=== PATIENT | female | born 1950 | race Caucasian/White ===

== ENCOUNTER 2017-05-26 05:15 | Emergency (ER) | payer MEDICARE ==
[2017-05-26 05:28] VITALS: BP 133/49
--- NOTE | 2017-05-26 08:05 | RAD ---
HISTORY: Right shoulder pain COMPARISONS: October 26, 2015 VIEWS: 4, Frontal internal rotation, external rotation, outlet, and axillary views of the right shoulder FINDINGS: BONE DENSITY: There is diffuse osteopenia. BONES: There is no displaced fracture. JOINTS: There is mild osteoarthritis of the a.c. and glenohumeral joints ALIGNMENT: There is no dislocation. SOFT TISSUES: There is soft tissue calcification along the greater tuberosity OTHER FINDINGS: None. IMPRESSION: 1. OSTEOPENIA. 2. SOFT TISSUE CALCIFICATION SUGGESTIVE OF A CALCIFIC TENDINOPATHY. 3. NO ACUTE OSSEOUS INJURY. THE DEGREE OF OSTEOPENIA MAY MAKE A NONDISPLACED FRACTURE RADIOGRAPHICALLY OCCULT. IF SYMPTOMS PERSIST, RECOMMEND REPEAT IMAGING.
--- NOTE | 2017-05-26 08:06 | RAD ---
HISTORY: Fall, right rib pain COMPARISONS: July 04, 2016 VIEWS: 6, Frontal view of the chest with frontal and oblique views of the right hemithorax. FINDINGS: There is no displaced rib fracture or pneumothorax. The visualized lungs are clear. There is remote posttraumatic deformity to the left hemithorax and left shoulder. IMPRESSION: NO ACUTE DISPLACED RIB FRACTURE OR PNEUMOTHORAX.
== END 2017-05-26 06:50 | disposition home or self-care (01) ==
LOC: ED 05:15
DX: M25.511 Pain in right shoulder (principal); R07.81 Pleurodynia
CPT/HCPCS: 99282

== ENCOUNTER 2017-06-04 21:58 | Emergency (ER) | payer MEDICARE ==
[2017-06-04 22:13] VITALS: BP 136/69
--- NOTE | 2017-06-04 22:14 | UC ---
Lower Extremity/Ankle HPI - HPI Summary HPI Summary: wound dressing on left leg is saturated--per wound clinic patient needs dressing changed--patient to [facility] for assistance with dressing change - History of Current Complaint Chief Complaint: UCSkin Stated Complaint: WOUND REPACKING Time Seen by Provider: 06/04/17 22:00 Hx Obtained From: Patient ?: No Onset/Duration: Gradual Onset, Worse Since - tonight Severity Initially: Mild Severity Currently: Mild Aggravating Factor(s): Nothing Able to Bear Weight: Yes - Allergies/Home Medications Allergies/Adverse Reactions: Allergies Allergy/AdvReac Type Severity Reaction Status Date / Time Morphine Allergy Mild Unknown Verified 06/04/17 22:07 Reaction Details Clarithromycin [From Biaxin] Allergy Unknown Unknown Verified 06/04/17 22:07 Reaction Details Codeine Allergy Unknown Unknown Verified 06/04/17 22:07 Reaction Details Dust Mite Extract Allergy Unknown Unknown Verified 06/04/17 22:07 Reaction Details Gabapentin [From Neurontin] Allergy Unknown Unknown Verified 06/04/17 22:07 Reaction Details Iodinated Contrast Media Allergy Unknown SEE Verified 06/04/17 22:07 [CONTRAST DYE] COMMENT Lactose Intolerance (GI) Allergy Unknown Unknown Verified 06/04/17 22:07 Reaction Details Meperidine [From Demerol HCl] Allergy Unknown Unknown Verified 06/04/17 22:07 Reaction Details Molds & Smuts Allergy Unknown Unknown Verified 06/04/17 22:07 Reaction Details Moxifloxacin [From Avelox] Allergy Unknown Rash Verified 06/04/17 22:07 Nickel Allergy Unknown Rash And Verified 06/04/17 22:07 Itching Penicillins [PCN] Allergy Unknown Rash Verified 06/04/17 22:07 Pollen Extract Allergy Unknown Unknown Verified 06/04/17 22:07 Reaction Details Propoxyphene [From Darvon] Allergy Unknown Unknown Verified 06/04/17 22:07 Reaction Details Soy Allergy Allergy Unknown Unknown Verified 06/04/17 22:07 Reaction Details Terconazole [From Terazol] Allergy Unknown Unknown Verified 06/04/17 22:07 Reaction Details Tetanus Toxoid Allergy Unknown See Verified 06/04/17 22:07 Comment Gluten Meal AdvReac Unknown GI Upset Verified 06/04/17 22:07 k y jelly Allergy Unknown Unknown Uncoded 06/04/17 22:07 Reaction Details narcotics Allergy Unknown Nausea And Uncoded 06/04/17 22:07 Vomiting PMH/Surg Hx/FS Hx/Imm Hx Endocrine History: Diabetes, Hypothyroidism GI/ History: Gastroesophageal Reflux Other History Of: Negative For: Anticoagulant Therapy - baby aspirin - Surgical History Surgical History: Yes Surgery Procedure, Year, and Place: 2005- RADICAL NECK SURG - FOR 2 TUMORS: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 ARTHROSCOPIC - 12/1981; WISDOM TEETH EXTRACTION; - Family History Known Family History: Positive: Cardiac Disease - Social History Occupation: Disabled Lives: With Family Alcohol Use: None Substance Use Type: None Smoking Status (MU): Never Smoked Tobacco - Immunization History Most Recent Influenza Vaccination: 2015 Review of Systems Constitutional: Negative Skin: Other - serrous drainaing bulla on left lower extremity--- needs dressing change Eyes: Negative ENT: Negative Respiratory: Negative Cardiovascular: Negative Gastrointestinal: Negative Genitourinary: Negative Motor: Negative Neurovascular: Negative Musculoskeletal: Negative Neurological: Negative Psychological: Negative Is Patient Immunocompromised?: No All Other Systems Reviewed And Are Negative: Yes Physical Exam Triage Information Reviewed: Yes Appearance: Well-Appearing, No Pain Distress, Well-Nourished Vital Signs: Initial Vital Signs Temp 100.6 F 06/04/17 22:03 Pulse 85 06/04/17 22:03 Resp 16 06/04/17 22:03 BP 136/69 06/04/17 22:03 Pulse Ox 98 06/04/17 22:03 Vital Signs Reviewed: Yes Eye Exam: Normal Eyes: Positive: Conjunctiva Clear ENT Exam: Normal ENT: Positive: Normal ENT inspection, Hearing grossly normal. Negative: Nasal congestion, Nasal drainage, Trismus, Muffled/hoarse voice Dental Exam: Normal Neck exam: Other - surgical changes-healed Neck: Positive: 1 Respiratory Exam: Normal Respiratory: Positive: Chest non-tender, No respiratory distress, No accessory muscle use, Respiratory distress Cardiovascular Exam: Normal Cardiovascular: Positive: RRR, No Murmur, Pulses Normal Musculoskeletal Exam: Normal Musculoskeletal: Positive: Strength Intact, ROM Intact, No Edema Neurological Exam: Normal Neurological: Positive: Alert, Muscle Tone Normal Psychological Exam: Normal Skin Exam: Other Skin: Positive: Other - serrous draining wound LLE with Peripheal edema (chronic ) Lower Extremity Course/Dx - Course Course Of Treatment: Dressing changed, support hose applied, patient tolerated well - Differential Dx/Diagnosis Differential Diagnosis/HQI/PQRI: Burn Localized, Bursitis, Cellulitis, Osteomyelitis Provider Diagnoses: Dressing change chronic wound left lower extremity Discharge - Discharge Plan Condition: Stable Disposition: HOME Patient Education Materials: Wound Healing and Your Diet (ED) Referrals: Pablo Thomas MD [Primary Care Provider] - Additional Instructions: Follow at the wound clinic June 07 as planned--
== END 2017-06-04 22:25 | disposition home or self-care (01) ==
LOC: UCEAST 21:58
DX: S81.802D Unspecified open wound, left lower leg, subsequent encounter (principal); X58.XXXD Exposure to other specified factors, subsequent encounter; Z48.00 Encounter for change or removal of nonsurgical wound dressing; E11.9 Type 2 diabetes mellitus without complications; E03.9 Hypothyroidism, unspecified; K21.9 Gastro-esophageal reflux disease without esophagitis; Z79.82 Long term (current) use of aspirin; Z88.5 Allergy status to narcotic agent; Z88.0 Allergy status to penicillin; Z88.7 Allergy status to serum and vaccine; Z88.1 Allergy status to other antibiotic agents; Z91.041 Radiographic dye allergy status
CPT/HCPCS: 99212; G0463

== ENCOUNTER 2017-08-16 15:00 | Emergency (ER) | payer MEDICARE ==
[2017-08-16 16:13] LABS: Hematocrit 29 % (35-47); Mean Corpuscular HGB Conc 32 g/dl (31-36); Mean Corpuscular Hemoglobin 27 pg (27-31); Mean Corpuscular Volume 84 fL (80-97); Mean Platelet Volume 9 um3 (7.4-10.4); Red Blood Count 3.39 10^6/ul (4.0-5.4); Red Cell Distribution Width 19 % (10.5-15); White Blood Count 7.4 10^3/ul (3.5-10.8)
[2017-08-16 16:14] LABS: Comments Flag Yes
[2017-08-16 16:17] LABS: ALT 8 U/L (7-52); AST 15 U/L (13-39); Albumin 3.6 g/dL (3.2-5.2); Alkaline Phosphatase 94 U/L (34-104); Amylase 11 U/L (29-103); Anion Gap 5 mmol/L (2-11); BUN/Creatinine Ratio 35.2 (8-20); Blood Urea Nitrogen 25 mg/dL (6-24); C Reactive Protein 5.01 mg/L (< 5.00); CO2 Carbon Dioxide 30 mmol/L (22-32); Calcium 9.1 mg/dL (8.6-10.3); Chloride 100 mmol/L (101-111); EGFR African American 105.9 (>60); EGFR Non-African American 82.4 (>60); Globulin 3.2 g/dL (2-4); Glucose 102 mg/dL (70-100); Lipase < 10 U/L (11.0-82.0); Potassium 3.7 mmol/L (3.5-5.0); Sodium 135 mmol/L (133-145); Total Protein 6.8 g/dL (6.4-8.9)
--- NOTE | 2017-08-16 16:34 | RAD ---
INDICATION: Abdominal bloating. COMPARISON: There are no prior studies available for comparison. TECHNIQUE: Supine and upright views of the abdomen were obtained. FINDINGS: The small bowel and colon appear nondistended. No free intraperitoneal air is seen. There is a moderate to large amount retained stool. No abnormal calcifications are seen. IMPRESSION: NO EVIDENCE FOR OBSTRUCTION. MODERATE TO LARGE AMOUNT RETAINED STOOL.
[2017-08-16] MEDS ORDERED: Magnesium CITRATE* 300 ML BTL PO ONE (17:18)
[2017-08-16] MEDS ORDERED: Polyethylene Glycol 3350 BTL* 238 GM BTL PO ONE (17:18)
[2017-08-16] MEDS ORDERED: traMADol TAB* 50 MG PO ONE (17:35)
[2017-08-16] MEDS ORDERED: Acetaminophen TAB* 325 MG PO ONE (17:40)
[2017-08-16] MEDS ORDERED: Polyethylene Glycol 3350* 17 GM PACKET ONE (18:14)
[2017-08-16 18:35] VITALS: BP 119/63
--- NOTE | 2017-08-16 19:00 | ED ---
Griffin Cho Angela, scribed for Dharmesh Bravo MD on 08/16/17 at 1520 . Abdominal Pain/Female - HPI Summary HPI Summary: This pt is a 66 y/o female presenting to [facility] from the wound care c/o abd bloating. Pt reports at the wound clinic, she had a fever of 100 F. Pt states her abd is bloated probably due to gas. Pt notes she is burping but is not passing flatus. Pt denies any diarrhea, nausea, vomiting. She states her last BM was this morning and it was "as normal as it can be with IBS." PMHx includes IBS, diabetes, thyroid disease. - History of Current Complaint Chief Complaint: EDNauseaVomitDiarrh Stated Complaint: NAUSEA,HEADACHE Time Seen by Provider: 08/16/17 15:12 Hx Obtained From: Patient Onset/Duration: Lasting Hours, Still Present Timing: Hours Pain Intensity: 8 Pain Scale Used: 0-10 Numeric Location: Diffuse Radiates: No Character: Other: - bloating Associated Signs and Symptoms: Positive: Cough Allergies/Adverse Reactions: Allergies Allergy/AdvReac Type Severity Reaction Status Date / Time Morphine Allergy Mild Unknown Verified 06/04/17 22:07 Reaction Details Clarithromycin [From Biaxin] Allergy Unknown Unknown Verified 06/04/17 22:07 Reaction Details Codeine Allergy Unknown Unknown Verified 06/04/17 22:07 Reaction Details Dust Mite Extract Allergy Unknown Unknown Verified 06/04/17 22:07 Reaction Details Gabapentin [From Neurontin] Allergy Unknown Unknown Verified 06/04/17 22:07 Reaction Details Iodinated Contrast Media Allergy Unknown SEE Verified 06/04/17 22:07 [CONTRAST DYE] COMMENT Lactose Intolerance (GI) Allergy Unknown Unknown Verified 06/04/17 22:07 Reaction Details Meperidine [From Demerol HCl] Allergy Unknown Unknown Verified 06/04/17 22:07 Reaction Details Molds & Smuts Allergy Unknown Unknown Verified 06/04/17 22:07 Reaction Details Moxifloxacin [From Avelox] Allergy Unknown Rash Verified 06/04/17 22:07 Nickel Allergy Unknown Rash And Verified 06/04/17 22:07 Itching Penicillins [PCN] Allergy Unknown Rash Verified 06/04/17 22:07 Pollen Extract Allergy Unknown Unknown Verified 06/04/17 22:07 Reaction Details Propoxyphene [From Darvon] Allergy Unknown Unknown Verified 06/04/17 22:07 Reaction Details Soy Allergy Allergy Unknown Unknown Verified 06/04/17 22:07 Reaction Details Terconazole [From Terazol] Allergy Unknown Unknown Verified 06/04/17 22:07 Reaction Details Tetanus Toxoid Allergy Unknown See Verified 06/04/17 22:07 Comment Gluten Meal AdvReac Unknown GI Upset Verified 06/04/17 22:07 k y jelly Allergy Unknown Unknown Uncoded 06/04/17 22:07 Reaction Details narcotics Allergy Unknown Nausea And Uncoded 06/04/17 22:07 Vomiting PMH/Surg Hx/FS Hx/Imm Hx Endocrine/Hematology History: Reports: Hx Blood Disorders - Thalasemia minor, Hx Diabetes, Hx Thyroid Disease Denies: Hx Anticoagulant Therapy - baby aspirin Cardiovascular History: Reports: Hx Angina, Other Cardiovascular Problems/ Disorders - TACHYCARDIA/IDDM I Denies: Hx Coronary Artery Disease, Hx Hypercholesterolemia, Hx Hypertension , Hx Myocardial Infarction, Hx Pacemaker/ICD, Hx Valvular Heart Disease Respiratory History: Reports: Hx Asthma, Hx Seasonal Allergies Denies: Hx Chronic Obstructive Pulmonary Disease (COPD) GI History: Reports: Hx Irritable Bowel History: Denies: Hx Renal Disease Musculoskeletal History: Reports: Other Musculoskeletal History - ARTHRITIS Sensory History: Denies: Hx Hearing Aid Neurological History: Reports: Other Neuro Impairments/Disorders - TINNITUS Denies: Hx Dementia, Hx Seizures Psychiatric History: Denies: Hx Panic Disorder - Cancer History Cancer Type, 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 ARTHROSCOPIC - 12/1981; WISDOM TEETH EXTRACTION; - Immunization History Date of Tetanus Vaccine: allergic Date of Influenza Vaccine: utd Infectious Disease History: No Infectious Disease History: Reports: Hx Shingles Denies: Hx Hepatitis, Hx Human Immunodeficiency Virus (HIV), Traveled Outside the [place] in Last 30 Days - Family History Known Family History: Positive: Cardiac Disease - Social History Alcohol Use: None Hx Substance Use: No Substance Use Type: Reports: None Hx Tobacco Use: No Smoking Status (MU): Never Smoked Tobacco Have You Smoked in the Last Year: No Review of Systems Positive: Fever Eyes: Negative ENT: Negative Cardiovascular: Negative Gastrointestinal: Other - abd bloating, burping Negative: Vomiting, Diarrhea, Nausea Neurological: Negative All Other Systems Reviewed And Are Negative: Yes Physical Exam - Summary Physical Exam Summary: VITAL SIGNS: Reviewed. GENERAL: Patient is an elderly female. Patient is not in any acute respiratory distress. It is difficult to understand pt probably due to surgery on her neck that has affected her vocal cords. HEAD AND FACE: Normocephalic and atraumatic. EYES: PERRLA, EOMI x 2, No injected conjunctiva. EARS: Hearing grossly intact. Ear canals and tympanic membranes are WNL. MOUTH: Oropharynx within normal limits. NECK: Supple, trachea is midline, no adenopathy, no JVD. CHEST: Symmetric, no tenderness at palpation LUNGS: Clear to auscultation bilaterally. No wheezing or crackles. CVS: RRR, S1 and S2 present, no murmurs or gallops appreciated. ABDOMEN: Soft, non-tender. No signs of distention. Positive bowel sounds. No rebound no guarding, and no masses palpated. No abdominal bruit or pulsations. EXTREMITIES: FROM in all major joints, no edema, no cyanosis or clubbing. NEURO: Alert and oriented x 3. No acute neurological deficits. Speech is normal. SKIN: Dry and warm Triage Information Reviewed: Yes Vital Signs On Initial Exam: Initial Vitals Temp Pulse Resp BP Pulse Ox 98.3 F 75 20 137/48 100 08/16/17 15:03 08/16/17 15:03 08/16/17 15:03 08/16/17 15:03 08/16/17 15:03 Vital Signs Reviewed: Yes Diagnostics - Vital Signs Vital Signs Temp Pulse Resp BP Pulse Ox 08/16/17 15:03 98.3 F 75 20 137/48 100 - Laboratory Result Diagrams: 08/16/17 15:50 08/16/17 15:50 Lab Statement: Any lab studies that have been ordered have been reviewed, and results considered in the medical decision making process. - Radiology Abdomen XR Xray Interpretation: Positive (See Comments) - IMPRESSION: No evidence for obstruction. Moderate to large amount retained stool. ED physician has reviewed this radiology report and agrees. Radiology Interpretation Completed By: Radiologist Re-Evaluation - Re-Evaluation First Eval Re-Evaluation Time: 17:35 Comment: I discussed the XR results with the pt. Abdominal Pain Fem Course/Dx - Course Course Of Treatment: This pt is a 66 y/o female presenting to [facility] from the wound care c/o abd bloating. Pt reports at the wound clinic, she had a fever of 100 F. Pt states her abd is bloated probably due to gas. Pt notes she is burping but is not passing flatus. Pt denies any diarrhea, nausea, vomiting. She states her last BM was this morning and it was "as normal as it can be with IBS.". PMHx includes IBS, diabetes, thyroid disease. Test results shows slight chronic anemia but no other significant abnormalities. XR of the abdomen shows no evidence for obstruction. Moderate to large amount retained stool. Since the pt seems to have constipation, she was given miralax, lactulose, magnesium citrate. The pt continues to be asymptomatic with no abdominal pain, rather she has bloating. Therefore, the pt will be discharged home with follow up from her PCP. Pt is hemodynamically stable, alert and oriented x3. - Diagnoses Provider Diagnoses: Bloating, Constipation Discharge - Discharge Plan Condition: Stable Disposition: HOME Patient Education Materials: Constipation (ED), Gas and Bloating (ED) Referrals: Pablo Thomas MD [Primary Care Provider] - Additional Instructions: Please follow up with your primary care provider. RETURN TO THE ED FOR ANY WORSENING SYMPTOMS. The documentation as recorded by the Griffin calloway Angela accurately reflects the service I personally performed and the decisions made by me, Dharmesh Bravo MD.
== END 2017-08-16 18:34 | disposition home or self-care (01) ==
LOC: ED 15:00
DX: R14.0 Abdominal distension (gaseous) (principal); K59.00 Constipation, unspecified; R11.0 Nausea; R05 Cough; R50.9 Fever, unspecified
CPT/HCPCS: 36415; 74020; 80053; 82150; 83690; 85025; 86140; 99283; A9270-GY

== ENCOUNTER 2017-09-15 03:18 | Emergency (ER) | payer MEDICARE ==
[2017-09-15] MEDS ORDERED: traMADol TAB* 50 MG PO ONE (04:15)
[2017-09-15 04:51] VITALS: BP 113/62
--- NOTE | 2017-09-15 05:24 | ED ---
Barron Cho Stephanie, scribed for Santino Knight on 09/15/17 at 0335 . Head Injury - HPI Summary HPI Summary: Pt is a 66 y/o F with c/o head injury post fall. Pt denies LOC. - History Of Current Complaint Chief Complaint: EDHeadInjury Stated Complaint: FALL, HEAD INJURY Time Seen by Provider: 09/15/17 03:24 Hx Obtained From: Patient, Family/Eviction Specialist Mechanism Of Injury: Fall From A Standing Position Onset/Duration: Started Hours Ago Onset of Pain: Post Accident Severity Initially: Moderate Pain Intensity: 6 Pain Scale Used: 0-10 Numeric Location of Head Injury: Occipital - Allergies/Home Medications Allergies/Adverse Reactions: Allergies Allergy/AdvReac Type Severity Reaction Status Date / Time Morphine Allergy Mild Unknown Verified 09/15/17 03:23 Reaction Details Clarithromycin [From Biaxin] Allergy Unknown Unknown Verified 09/15/17 03:23 Reaction Details Codeine Allergy Unknown Unknown Verified 09/15/17 03:23 Reaction Details Dust Mite Extract Allergy Unknown Unknown Verified 09/15/17 03:23 Reaction Details Gabapentin [From Neurontin] Allergy Unknown Unknown Verified 09/15/17 03:23 Reaction Details Iodinated Contrast Media Allergy Unknown SEE Verified 09/15/17 03:23 [CONTRAST DYE] COMMENT Lactose Intolerance (GI) Allergy Unknown Unknown Verified 09/15/17 03:23 Reaction Details Meperidine [From Demerol HCl] Allergy Unknown Unknown Verified 09/15/17 03:23 Reaction Details Molds & Smuts Allergy Unknown Unknown Verified 09/15/17 03:23 Reaction Details Moxifloxacin [From Avelox] Allergy Unknown Rash Verified 09/15/17 03:23 Nickel Allergy Unknown Rash And Verified 09/15/17 03:23 Itching Penicillins [PCN] Allergy Unknown Rash Verified 09/15/17 03:23 Pollen Extract Allergy Unknown Unknown Verified 09/15/17 03:23 Reaction Details Propoxyphene [From Darvon] Allergy Unknown Unknown Verified 09/15/17 03:23 Reaction Details Soy Allergy Allergy Unknown Unknown Verified 09/15/17 03:23 Reaction Details Terconazole [From Terazol] Allergy Unknown Unknown Verified 09/15/17 03:23 Reaction Details Tetanus Toxoid Allergy Unknown See Verified 09/15/17 03:23 Comment Gluten Meal AdvReac Unknown GI Upset Verified 09/15/17 03:23 k y jelly Allergy Unknown Unknown Uncoded 09/15/17 03:23 Reaction Details narcotics Allergy Unknown Nausea And Uncoded 09/15/17 03:23 Vomiting PMH/Surg Hx/FS Hx/Imm Hx Endocrine/Hematology History: Reports: Hx Blood Disorders - Thalasemia minor, Hx Diabetes, Hx Thyroid Disease Denies: Hx Anticoagulant Therapy - baby aspirin Cardiovascular History: Reports: Hx Angina, Other Cardiovascular Problems/ Disorders - TACHYCARDIA/IDDM I Denies: Hx Coronary Artery Disease, Hx Hypercholesterolemia, Hx Hypertension , Hx Myocardial Infarction, Hx Pacemaker/ICD, Hx Valvular Heart Disease Respiratory History: Reports: Hx Asthma, Hx Seasonal Allergies Denies: Hx Chronic Obstructive Pulmonary Disease (COPD) GI History: Reports: Hx Irritable Bowel History: Denies: Hx Renal Disease Musculoskeletal History: Reports: Other Musculoskeletal History - ARTHRITIS Sensory History: Denies: Hx Hearing Aid Neurological History: Reports: Other Neuro Impairments/Disorders - TINNITUS Denies: Hx Dementia, Hx Seizures Psychiatric History: Denies: Hx Panic Disorder - Cancer History Cancer Type, Location and Year: squamous cell Hx Chemotherapy: Yes - MOUTH/NECK Hx Radiation Therapy: Yes - MOUTH/NECK - Surgical History Surgery Procedure, Year, and Place: 2006- RADICAL NECK SURG - FOR 2 TUMORS: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 ARTHROSCOPIC - 12/1981; WISDOM TEETH EXTRACTION; - Immunization History Date of Tetanus Vaccine: unk Date of Influenza Vaccine: unk Infectious Disease History: No Infectious Disease History: Reports: Hx Shingles Denies: Hx Hepatitis, Hx Human Immunodeficiency Virus (HIV), Traveled Outside the [place] in Last 30 Days - Family History Known Family History: Positive: Cardiac Disease - Social History Alcohol Use: None Hx Substance Use: No Substance Use Type: Reports: None Hx Tobacco Use: No Smoking Status (MU): Never Smoked Tobacco Have You Smoked in the Last Year: No Review of Systems Negative: Fever Neurological: Other - Negative: LOC All Other Systems Reviewed And Are Negative: Yes Physical Exam - Summary Physical Exam Summary: Appearance: Well appearing, no pain distress Skin: warm, dry, reflects adequate perfusion Head/face: 3 cm laceration over occipital lobe Eyes: EOMI, IFRAH ENT: normal Neck: supple, non-tender Respiratory: CTA, breath sounds present Cardiovascular: RRR, pulses symmetrical Abdomen: non-tender, soft Bowel: present Musculoskeletal: Tenderness over left shoulder, range of motion limited over left shoulder. Dressing over legs bilaterally. Neuro: normal, sensory motor intact, A&Ox3 Triage Information Reviewed: Yes Vital Signs On Initial Exam: Initial Vitals Temp Pulse Resp BP Pulse Ox 98.1 F 80 18 123/71 98 09/15/17 03:21 09/15/17 03:21 09/15/17 03:21 09/15/17 03:21 09/15/17 03:21 Vital Signs Reviewed: Yes - [place] Coma Scale Coma Scale Total: 15 Procedures - Laceration/Wound Repair 1 Location: head Description: Linear Length, Depth and Shape: 3 cm Laceration/Wound Explored: clean Closure: Sydni #__ - 6 Diagnostics - Vital Signs Vital Signs Temp Pulse Resp BP Pulse Ox 09/15/17 03:21 98.1 F 80 18 123/71 98 - Laboratory Lab Statement: Any lab studies that have been ordered have been reviewed, and results considered in the medical decision making process. - Radiology XRAY SHOULDER Xray Interpretation: No Acute Changes Radiology Interpretation Completed By: ED Physician - Old fracture. No new fracture. - CT CT Brain CT Interpretation: No Acute Changes CT Interpretation Completed By: ED Physician - Negative Head Injury Course/Dx Course Of Treatment: Pt is a 66 y/o F with c/o head injury post fall. ED physician provided laceration repair with 6 stitches. Pt will be discharged and is advised to follow up with PCP to check laceration repair in 3 days and orthopedic physician if pain persits . Pt is diagnosed with scalp laceration, head injury, and L shoulder pain. - Diagnoses Differential Diagnosis/HQI/PQRI: Cerebral Contusion, Contusion, Laceration, Skull Fracture Provider Diagnoses: Scalp laceration, Head injury, Left shoulder pain Discharge - Discharge Plan Condition: Fair Disposition: HOME Patient Education Materials: Head Injury (ED), Care For Your Absorbable Stitches (ED), Shoulder Pain (ED) Referrals: Pablo Thomas MD [Primary Care Provider] - The documentation as recorded by the Barron calloway Stephanie accurately reflects the service I personally performed and the decisions made by Eugene patterson Emmanuel.
--- NOTE | 2017-09-15 07:54 | RAD ---
INDICATION: Intracranial injury. Scalp laceration COMPARISON: MRI brain January 08, 2013 TECHNIQUE: Noncontrast axial source images were acquired from the skull base to the vertex. FINDINGS: Ventricles/sulci: There is mild age-related cortical atrophy with compensatory dilatation of the CSF spaces. Brain parenchyma: There is periventricular and subcortical white matter change compatible with chronic ischemia to include a remote infarct of the right basal ganglia. Intracranial hemorrhage:None. Extra-axial spaces: There are no abnormal extra axial fluid collections or evidence of extra-axial mass. Calvarium: There is no calvarial fracture or other calvarial abnormality. Scalp: There is no evidence of scalp or extracalvarial soft tissue abnormality. Paranasal sinuses/mastoid: The paranasal sinuses and mastoid air cells are clear. Other: None. IMPRESSION: Chronic microvascular ischemic changes. No acute findings
--- NOTE | 2017-09-15 07:56 | RAD ---
INDICATION: Left shoulder pain. Fall. Injury to left shoulder many years ago. COMPARISON: Left shoulder April 18, 2014 TECHNIQUE: Routine frontal, Y and axial views were obtained. FINDINGS: There is osteopenia with a remote fracture of the surgical neck and head of the humerus with resultant deformity. There is AC joint osteoarthritis. There are multiple left-sided rib fractures. There is no acute change. IMPRESSION: PRIOR TRAUMA WITH OLD PROXIMAL HUMERAL AND LEFT RIB FRACTURES. NO ACUTE FINDINGS
== END 2017-09-15 04:49 | disposition home or self-care (01) ==
LOC: ED 03:18
DX: S01.01XA Laceration without foreign body of scalp, initial encounter (principal); W19.XXXA Unspecified fall, initial encounter; Y92.9 Unspecified place or not applicable; Z88.1 Allergy status to other antibiotic agents; Z91.041 Radiographic dye allergy status; Z88.5 Allergy status to narcotic agent; Z88.7 Allergy status to serum and vaccine; Z88.8 Allergy status to other drugs, medicaments and biological substances; Z91.018 Allergy to other foods; Z91.09 Other allergy status, other than to drugs and biological substances; E11.9 Type 2 diabetes mellitus without complications; M19.90 Unspecified osteoarthritis, unspecified site; M25.512 Pain in left shoulder
CPT/HCPCS: 12002; 70450; 99282; A9270-GY

== ENCOUNTER 2017-09-24 08:51 | Emergency (ER) | payer MEDICARE ==
[2017-09-24] MEDS ORDERED: NS 0.9% 1000 ML* 1,000 ML IV ONE (09:08)
--- NOTE | 2017-09-24 09:35 | RAD ---
INDICATION: Hypoglycemia, diabetes mellitus. COMPARISON: Comparison is made with prior chest x-ray study from July 04, 2016. TECHNIQUE: A portable view of the chest was obtained. FINDINGS: Cardiac and mediastinal contours appear to be within normal limits. The lungs are clear. No pleural effusion is seen. There are several old mid left posterior healed rib fractures. IMPRESSION: NO EVIDENCE FOR ACUTE DISEASE.
[2017-09-24 09:46] LABS: ABS Basophils 0 10^3/ul (0-0.2); ABS Eosinophils 0 10^3/ul (0-0.6); ABS Lymphocytes 0.4 10^3/ul (1.0-4.8); ABS Monocytes 0.4 10^3/ul (0-0.8); ABS Neutrophils 7.2 10^3/ul (1.5-7.7); ABS Nucleated RBC 0 10^3/ul; Eosinophil % 0.2 % (0-6); Hematocrit 31 % (35-47); Hemoglobin 9.8 g/dl (12.0-16.0); Lymphocyte % 4.6 % (25-47); Mean Corpuscular HGB Conc 32 g/dl (31-36); Mean Corpuscular Hemoglobin 26 pg (27-31); Mean Corpuscular Volume 82 fL (80-97); Mean Platelet Volume 8 um3 (7.4-10.4); Nucleated Red Blood Cells % 0; Platelet Count 261 10^3/ul (150-450); Red Blood Count 3.82 10^6/ul (4.0-5.4); Red Cell Distribution Width 18 % (10.5-15)
[2017-09-24 09:55] LABS: INR 0.9 (0.77-1.02)
[2017-09-24 10:02] LABS: EGFR Non-African American 77.3 (>60)
[2017-09-24 10:04] LABS: Urine Appearance Clear; Urine Blood Negative (Negative); Urine Color Yellow; Urine Ketones Negative (Negative); Urine Protein 1+(30 mg/dL) (Negative); Urine Urobilinogen Negative (Negative)
--- NOTE | 2017-09-24 10:52 | ED ---
Max Cho Abhishek, scribed for Adali Coy MD on 09/24/17 at 1012 . HPI Diabetic - HPI Summary HPI Summary: This patient is a 66 year old F BIBA accompanied by male with a chief complaint of low blood sugar since today morning at 0800 (09/24/17). Patient has slurred speech but this is baseline speech for her per and pt. PMHx includes DM type 1 since July 1999, not on the pump. Patient was previously in the ED on the 09/15/17 s/p fall and received christie to the back of her head and she also injured her shoulder on that visit to the ED. Shoulder pain is present and she complains of pain. Shoulder and other areas of injury were X-rayed, Ct scanned one week ago (09/15/17). The last intake of insulin was 0600 (lantis 24 at 0600 ) and other previous intake of insulin was 0030. The patient rates the pain 0/ 10 in severity. EMS reports state that sugar level was in the 20s and that patient was given 200 cc 10% dextrose to raise glucose to 200s. Symptoms aggravated by nothing. Symptoms alleviated by nothing. Patient reports chills, tremors, and dry mouth. Patient denies chest pain. Pt with hx Sjogren's. - History Of Current Complaint Chief Complaint: EDDiabeticProb Time Seen by Provider: 09/24/17 09:08 Hx Obtained From: Patient, Family/Nurse Ortho Onset/Duration: Sudden Onset - 0800, Lasting Hours - Onset 0800 09/24/17, Still Present Timing: Constant Severity Initially: Severe Severity Currently: Mild Character: Confused Aggravating: Nothing Alleviating: Nothing Associated Signs & Symptoms: Chills Related History: DM I - Allergies/Home Medications Allergies/Adverse Reactions: Allergies Allergy/AdvReac Type Severity Reaction Status Date / Time Morphine Allergy Mild Unknown Verified 09/15/17 03:23 Reaction Details Clarithromycin [From Biaxin] Allergy Unknown Unknown Verified 09/15/17 03:23 Reaction Details Codeine Allergy Unknown Unknown Verified 09/15/17 03:23 Reaction Details Dust Mite Extract Allergy Unknown Unknown Verified 09/15/17 03:23 Reaction Details Gabapentin [From Neurontin] Allergy Unknown Unknown Verified 09/15/17 03:23 Reaction Details Iodinated Contrast Media Allergy Unknown SEE Verified 09/15/17 03:23 [CONTRAST DYE] COMMENT Lactose Intolerance (GI) Allergy Unknown Unknown Verified 09/15/17 03:23 Reaction Details Meperidine [From Demerol HCl] Allergy Unknown Unknown Verified 09/15/17 03:23 Reaction Details Molds & Smuts Allergy Unknown Unknown Verified 09/15/17 03:23 Reaction Details Moxifloxacin [From Avelox] Allergy Unknown Rash Verified 09/15/17 03:23 Nickel Allergy Unknown Rash And Verified 09/15/17 03:23 Itching Penicillins [PCN] Allergy Unknown Rash Verified 09/15/17 03:23 Pollen Extract Allergy Unknown Unknown Verified 09/15/17 03:23 Reaction Details Propoxyphene [From Darvon] Allergy Unknown Unknown Verified 09/15/17 03:23 Reaction Details Soy Allergy Allergy Unknown Unknown Verified 09/15/17 03:23 Reaction Details Terconazole [From Terazol] Allergy Unknown Unknown Verified 09/15/17 03:23 Reaction Details Tetanus Toxoid Allergy Unknown See Verified 09/15/17 03:23 Comment Gluten Meal AdvReac Unknown GI Upset Verified 09/15/17 03:23 k y jelly Allergy Unknown Unknown Uncoded 09/15/17 03:23 Reaction Details narcotics Allergy Unknown Nausea And Uncoded 09/15/17 03:23 Vomiting PMH/Surg Hx/FS Hx/Imm Hx Previously Healthy: No Endocrine/Hematology History: Reports: Hx Blood Disorders - Thalasemia minor, Hx Diabetes, Hx Thyroid Disease, Other Endocrine/Hematological Disorders - Sjogren's Denies: Hx Anticoagulant Therapy - baby aspirin Cardiovascular History: Reports: Hx Angina, Other Cardiovascular Problems/ Disorders - TACHYCARDIA/IDDM I Denies: Hx Coronary Artery Disease, Hx Hypercholesterolemia, Hx Hypertension , Hx Myocardial Infarction, Hx Pacemaker/ICD, Hx Valvular Heart Disease Respiratory History: Reports: Hx Asthma, Hx Seasonal Allergies Denies: Hx Chronic Obstructive Pulmonary Disease (COPD) GI History: Reports: Hx Irritable Bowel History: Denies: Hx Renal Disease Musculoskeletal History: Reports: Other Musculoskeletal History - ARTHRITIS Sensory History: Denies: Hx Hearing Aid Neurological History: Reports: Other Neuro Impairments/Disorders - TINNITUS Denies: Hx Dementia, Hx Seizures Psychiatric History: Denies: Hx Panic Disorder - Cancer History Cancer Type, Location and Year: squamous cell Hx Chemotherapy: Yes - MOUTH/NECK Hx Radiation Therapy: Yes - MOUTH/NECK - Surgical History Surgery Procedure, Year, and Place: 2006- RADICAL NECK SURG - FOR 2 TUMORS: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 ARTHROSCOPIC - 12/1981; WISDOM TEETH EXTRACTION; - Immunization History Date of Tetanus Vaccine: unk Date of Influenza Vaccine: unk Infectious Disease History: No Infectious Disease History: Reports: Hx Shingles Denies: Hx Hepatitis, Hx Human Immunodeficiency Virus (HIV), Traveled Outside the [place] in Last 30 Days - Family History Known Family History: Positive: Cardiac Disease, Diabetes - Diabetes Type 2 ( half sister) - Social History Lives: With Family Alcohol Use: None Hx Substance Use: No Substance Use Type: Reports: None Hx Tobacco Use: No Smoking Status (MU): Never Smoked Tobacco Have You Smoked in the Last Year: No Review of Systems Constitutional: Other - "low blood sugar" Positive: Chills, Other - dry mouth Eyes: Negative ENT: Negative Negative: Chest Pain Respiratory: Negative Gastrointestinal: Negative Genitourinary: Negative Positive: Other - Tremors Skin: Negative Neurological: Negative Psychological: Normal All Other Systems Reviewed And Are Negative: Yes Physical Exam - Summary Physical Exam Summary: Appearance: Ill-appearing, mild pain distress, Well-nourished, slurred speech, but her usual speech pattern per pt and Skin: Warm, color reflects adequate perfusion Head: Normal Head/Face inspection; dry oral mucosa Eyes: Conjunctiva clear, PERRL EOMI ENT: Normal Neck: Supple, No JVD, no nodes Respiratory: Lungs clear, Normal breath sounds, no respiratory distress Cardio: RRR, No murmur, pulses normal, brisk capillary refill Abdomen: soft, nontender, no masses, no guarding, no rebound Bowel sounds: present Musculoskeletal: Strength Intact/ ROM intact, bilat lower extremities with bandages in place, changed by nurse, not viewed by me. Left shoulder in sling, sling removed, pt without bony tenderness, and ROM, sling reapplied. Neuro: Alert, muscle tone normal, facial symmetry, slurred speech (unchanged, not new), sensory/motor intact Psychological: Normal Triage Information Reviewed: Yes Vital Signs On Initial Exam: Initial Vitals Temp Pulse Resp BP Pulse Ox 96.8 F 68 19 90/64 100 09/24/17 09:05 09/24/17 09:05 09/24/17 09:05 09/24/17 09:05 09/24/17 09:05 Vital Signs Reviewed: Yes - [place] Coma Scale Coma Scale Total: 15 Diagnostics - Vital Signs Vital Signs Temp Pulse Resp BP Pulse Ox 09/24/17 09:30 70 16 118/53 100 09/24/17 09:17 72 22 100 09/24/17 09:16 120/63 09/24/17 09:05 96.8 F 68 19 90/64 100 - Laboratory Lab Results: Lab Results 09/24/17 Range/Units 09:37 WBC 8.0 (3.5-10.8) 10^3/ul RBC 3.82 L (4.0-5.4) 10^6/ul Hgb 9.8 L (12.0-16.0) g/dl Hct 31 L (35-47) % MCV 82 (80-97) fL MCH 26 L (27-31) pg MCHC 32 (31-36) g/dl RDW 18 H (10.5-15) % Plt Count 261 (150-450) 10^3/ul MPV 8 (7.4-10.4) um3 Neut % (Auto) 89.4 H (38-83) % Lymph % (Auto) 4.6 L (25-47) % Bowie % (Auto) 5.3 (1-9) % Eos % (Auto) 0.2 (0-6) % Baso % (Auto) 0.5 (0-2) % Absolute Neuts (auto) 7.2 (1.5-7.7) 10^3/ul Absolute Lymphs (auto) 0.4 L (1.0-4.8) 10^3/ul Absolute Monos (auto) 0.4 (0-0.8) 10^3/ul Absolute Eos (auto) 0 (0-0.6) 10^3/ul Absolute Basos (auto) 0 (0-0.2) 10^3/ul Absolute Nucleated RBC 0 10^3/ul Nucleated RBC % 0 Result Diagrams: 09/24/17 09:37 09/24/17 09:37 Lab Statement: Any lab studies that have been ordered have been reviewed, and results considered in the medical decision making process. - Radiology Chest X-ray Radiology Interpretation Completed By: ED Physician - CXR reveals, per radiologist, NO EVIDENCE FOR ACUTE DISEASE. ED physician has reviewed this radiology report and agrees. - EKG 0915 EKG Rhythm: Sinus Rhythm - [address] Segment: Non-Specific EKG Interpretation: Normal AV IV Ct, Negative Baxter, Normal QTc, Normal PVC EKG Comparison: Other - Previous EKG 12/17/15 showed no significant changes Re-Evaluation - Re-Evaluation First Eval Re-Evaluation Time: 10:50 - pt is hungry, willing to eat, dressings on bilat legs and sacrum will be changed. Pt informed of low potassium, states she can take the liquid form. Feels well enough to be discharged. Repeat glucose 94 and pt will eat before she goes. Change: Improved Second Eval Re-Evaluation Time: 11:30 - pt eating applesauce, retentive. Speech clear. No abd pain. No fever. No vomiting. Pt agreeable to DC. Change: Improved Diabetic Course/Dx - Course Course Of Treatment: pt given D10 200cc by EMS, given 1 liter NS IV in ED, given applesauce and OJ, and KCL 40 MEQ po. FS glucose prior to DC 94 and pt ate subsequently. Dressings on both legs changed and on sacrum. Sling reapplied to left shoulder. Pt ambulatory at [facility] with . - Diagnoses Differential Dx: Acute [place], Diabetic Ketoacidosis, Hyperglycemia, Hypoglycemia, Pyelonephritis, Sepsis Provider Diagnoses: Hypoglycemia due to type 1 diabetes mellitus, Hypokalemia - Critical Care Time Critical Care Time: 30-74 min - 30 mins Discharge - Discharge Plan Condition: Stable Disposition: HOME Prescriptions: Potassium Chloride LIQUID* [Klor-Con LIQUID*] 20 meq PO DAILY #5 packet Patient Education Materials: Hypoglycemia in a Person with Diabetes (ED) Referrals: Pablo Thomas MD [Primary Care Provider] - 2 Days Additional Instructions: Decrease your evening and morning Lantus dose in half to 12 for the next 2 days , and then check with Dr. Thomas. Eat multiple small meals per day and check your glucoses frequently. Your potassium was 2.9. We gave you 40 MEQ Potassium liquid. You should take this for five days more and have your value rechecked with Dr. Thomas this week. Return to the ER if you have new or worsening symptoms. The documentation as recorded by the Max calloway Abhishek accurately reflects the service I personally performed and the decisions made by me, Adali Coy MD.
[2017-09-24] MEDS ORDERED: Potassium Chlor TAB* 20 MEQ TAB.ER PO ONE (10:53)
[2017-09-24] MEDS ORDERED: Potassium Chloride LIQUID* 20 MEQ PACKET PO ONE (11:00)
[2017-09-24 12:07] VITALS: BP 130/84
== END 2017-09-24 12:07 | disposition home or self-care (01) ==
LOC: ED 08:51
DX: E10.649 Type 1 diabetes mellitus with hypoglycemia without coma (principal); E87.6 Hypokalemia; D56.3 Thalassemia minor; M35.00 Sjogren syndrome, unspecified; Z79.4 Long term (current) use of insulin; Z88.5 Allergy status to narcotic agent; Z85.89 Personal history of malignant neoplasm of other organs and systems; Z85.828 Personal history of other malignant neoplasm of skin
CPT/HCPCS: 36415; 71010; 80053; 80307; 80320; 81003; 81015; 82550; 82803; 83605; 83690; 83735; 84100; 84484; 85025; 85610; 85730; 86140; 87086; 93005; 96360; 99283; A9270-GY; G0480

== ENCOUNTER 2017-09-26 17:57 | Emergency (ER) | payer MEDICARE ==
[2017-09-26] MEDS ORDERED: cefTRIAXone(*) 1 GM in NS 0.9% 50 ML* 50 ML IVPB ONE (20:25)
[2017-09-26] MEDS ORDERED: Acetaminophen TAB* 325 MG PO ONE (20:26)
--- NOTE | 2017-09-26 20:38 | ED ---
Skin Complaint - HPI Summary HPI Summary: Patient presents to the ED with with a concern for bilateral leg infection. Patient is type 1 diabetic and has been receiving wound care for ulcers to the bilateral legs for over 3 months. Wound care provided by Dr. Matute along with VNS services. Patient has slurred speech but this is baseline speech for her per and pt. PMHx includes DM type 1 since July 1999, not on pump. at bedside who is able to give a good history. VNS stated today the wound appeared to be drastically different than a few days ago and per patient the blackened areas to the bilateral legs have not ever been present until the VNS came to change bandage. Denies fevers, sweats or chills. Denies any and all other symptoms. She notes to a 2/10 pain except for on palpation, she states a 8/10. She has been using silver impregnated dressings through the wound clinic. Has not been on abx since Jul. Last abd doxycycline. - History of Current Complaint Chief Complaint: EDExtremityLower Time Seen by Provider: 09/26/17 19:48 Stated Complaint: POSSIBLE INFECTION IN LEGS Hx Obtained From: Patient Onset/Duration: Started Hours Ago Skin Exposure Onset/Duration: Hours Ago Timing: Constant Onset Severity: Moderate Current Severity: Moderate Pain Intensity: 5 Pain Scale Used: 0-10 Numeric Skin Location: Leg Character: Pain, Redness Aggravating Symptom(s): Nothing Alleviating Symptom(s): Nothing Associated Signs & Symptoms: Tenderness Related History: Diabetes - Allergy/Home Medications Allergies/Adverse Reactions: Allergies Allergy/AdvReac Type Severity Reaction Status Date / Time Morphine Allergy Mild Unknown Verified 09/15/17 03:23 Reaction Details Clarithromycin [From Biaxin] Allergy Unknown Unknown Verified 09/15/17 03:23 Reaction Details Codeine Allergy Unknown Unknown Verified 09/15/17 03:23 Reaction Details Dust Mite Extract Allergy Unknown Unknown Verified 09/15/17 03:23 Reaction Details Gabapentin [From Neurontin] Allergy Unknown Unknown Verified 09/15/17 03:23 Reaction Details Iodinated Contrast Media Allergy Unknown SEE Verified 09/15/17 03:23 [CONTRAST DYE] COMMENT Lactose Intolerance (GI) Allergy Unknown Unknown Verified 09/15/17 03:23 Reaction Details Meperidine [From Demerol HCl] Allergy Unknown Unknown Verified 09/15/17 03:23 Reaction Details Molds & Smuts Allergy Unknown Unknown Verified 09/15/17 03:23 Reaction Details Moxifloxacin [From Avelox] Allergy Unknown Rash Verified 09/15/17 03:23 Nickel Allergy Unknown Rash And Verified 09/15/17 03:23 Itching Penicillins [PCN] Allergy Unknown Rash Verified 09/15/17 03:23 Pollen Extract Allergy Unknown Unknown Verified 09/15/17 03:23 Reaction Details Propoxyphene [From Darvon] Allergy Unknown Unknown Verified 09/15/17 03:23 Reaction Details Soy Allergy Allergy Unknown Unknown Verified 09/15/17 03:23 Reaction Details Terconazole [From Terazol] Allergy Unknown Unknown Verified 09/15/17 03:23 Reaction Details Tetanus Toxoid Allergy Unknown See Verified 09/15/17 03:23 Comment Gluten Meal AdvReac Unknown GI Upset Verified 09/15/17 03:23 k y jelly Allergy Unknown Unknown Uncoded 09/15/17 03:23 Reaction Details narcotics Allergy Unknown Nausea And Uncoded 09/15/17 03:23 Vomiting PMH/Surg Hx/FS Hx/Imm Hx Previously Healthy: No Endocrine/Hematology History: Reports: Hx Blood Disorders - Thalasemia minor, Hx Diabetes, Hx Thyroid Disease, Other Endocrine/Hematological Disorders - Sjogren's Denies: Hx Anticoagulant Therapy - baby aspirin Cardiovascular History: Reports: Hx Angina, Other Cardiovascular Problems/ Disorders - TACHYCARDIA/IDDM I Denies: Hx Coronary Artery Disease, Hx Hypercholesterolemia, Hx Hypertension , Hx Myocardial Infarction, Hx Pacemaker/ICD, Hx Valvular Heart Disease Respiratory History: Reports: Hx Asthma, Hx Seasonal Allergies Denies: Hx Chronic Obstructive Pulmonary Disease (COPD) GI History: Reports: Hx Irritable Bowel History: Denies: Hx Renal Disease Musculoskeletal History: Reports: Other Musculoskeletal History - ARTHRITIS Sensory History: Denies: Hx Hearing Aid Neurological History: Reports: Other Neuro Impairments/Disorders - TINNITUS Denies: Hx Dementia, Hx Seizures Psychiatric History: Denies: Hx Panic Disorder - Cancer History Cancer Type, 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 ARTHROSCOPIC - 12/1981; WISDOM TEETH EXTRACTION; - Immunization History Date of Tetanus Vaccine: unk Date of Influenza Vaccine: unk Infectious Disease History: No Infectious Disease History: Reports: Hx Shingles Denies: Hx Hepatitis, Hx Human Immunodeficiency Virus (HIV), Traveled Outside the [place] in Last 30 Days - Family History Known Family History: Positive: Cardiac Disease, Diabetes - Diabetes Type 2 ( half sister) - Social History Occupation: Unemployed Lives: With Family Alcohol Use: None Hx Substance Use: No Substance Use Type: Reports: None Hx Tobacco Use: No Smoking Status (MU): Never Smoked Tobacco Have You Smoked in the Last Year: No Review of Systems Constitutional: Negative Negative: Fever, Chills, Fatigue Eyes: Negative Respiratory: Negative Genitourinary: Negative Positive: no symptoms reported, see HPI Musculoskeletal: Negative Positive: Other - leg infection Neurological: Negative All Other Systems Reviewed And Are Negative: Yes Physical Exam Triage Information Reviewed: Yes Vital Signs On Initial Exam: Initial Vitals Temp Pulse Resp BP Pulse Ox 97.7 F 87 20 110/90 98 09/26/17 18:08 09/26/17 18:08 09/26/17 18:08 09/26/17 18:08 09/26/17 18:08 Vital Signs Reviewed: Yes Appearance: Positive: Well-Appearing, Well-Nourished Skin: Positive: Weeping Skin/Lesions, Other - weeping lesions to the bilateral lower extremities. yellow ulcerations with underlying erythema and bleeding. areas of eschar Head/Face: Positive: Normal Head/Face Inspection Eyes: Positive: EOMI, IFRAH, Conjunctiva Clear Neck: Positive: No Lymphadenopathy Respiratory/Lung Sounds: Positive: Clear to Auscultation, Breath Sounds Present Cardiovascular: Positive: RRR, Pulses are Symmetrical in both Upper and Lower Extremities Musculoskeletal: Positive: Pain @ - bilateral lower extremities Neurological: Positive: Slurred Speech - at baseline Psychiatric: Positive: Normal, Affect/Mood Appropriate - [place] Coma Scale Coma Scale Total: 15 Diagnostics - Vital Signs Vital Signs Temp Pulse Resp BP Pulse Ox 09/26/17 20:27 98.5 F 09/26/17 18:08 97.7 F 87 20 110/90 98 - Laboratory Lab Statement: Any lab studies that have been ordered have been reviewed, and results considered in the medical decision making process. Course/Dx - Course Course Of Treatment: weeping lesions to the bilateral lower extremities. yellow ulcerations with underlying erythema and bleeding. areas of eschar. Discussed case with Dr. Gomez suggesting debridement and antibiotics. Attempted to debride larger areas of eschar with some success. Patient notes to pain and prefers to wait until tomorrow. She has an appt with wound care tomorrow and will see Dr. Matute. I have applied aquacel Ag dressing to the legs, applied ABD dressing and wrapped with gauze. Patient tolerated well. She is given Ceftriaxone IV and bactrim prior to discharge. Antibiotics for bactrim sent to pharmacy. She also has an appt with Dr. Montana (vascular) tomorrow. VS stable on discharge and afebrile. She feels otherwise OK and I do not see a reason to admit her to the hospital at this time. - Differential Diagnoses - Skin Complaint Differential Diagnoses: Other - diabetic ulcer - Diagnoses Provider Diagnoses: Diabetic ulcer of both lower extremities Discharge - Discharge Plan Condition: Stable Disposition: HOME Prescriptions: Sulfamethox/Trimethoprim SUSP* [Bactrim Susp*] 20 ml PO BID #400 ml Patient Education Materials: Chronic Wounds (ED) Referrals: Chandrakant Matute MD [Medical Doctor] - Pablo Thomas MD [Primary Care Provider] - Additional Instructions: Please follow up with Dr. Matute as scheduled tomorrow Please follow up with Dr. Montana You wounds were slightly debrided and dressed I recommed you get them debrided with pain management tomorrow at Dr. Matute's office Take Bactrim as prescribed (20ml) 4 teaspoons twice daily for 10 days or until your wound care MD states otherwise
--- NOTE | 2017-09-26 21:39 | ED ---
Elmer Cho Gabriel, scribed for Emiliano Gomez MD on 09/26/17 at 2025 . Progress - Progress Note Progress Note: I supervised patient care with mid level (Gildardo) and obtained a history and physical. 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 She has some black areas on her left leg and some on the right leg. She receives wound care. Noticed increased black areas on LLE. PE: Chronic L lower leg ant/lat wound with areas of exudate and dark/black skin. I debrided these areas and revealed vascular bleeding tissue under, there is no foul odor. Plan: Debridement/antibiotics and refer back to wound care. Has Vascular consult tomorrow. Course/Dx - Course Course Of Treatment: Debride wound give antibiotics The documentation as recorded by the Elmer calloway Gabriel accurately reflects the service I personally performed and the decisions made by me, Emiliano Gomez MD.
[2017-09-26] MEDS ORDERED: Sulfamethox/Trimethoprim DS 800/160* TAB PO ONE (22:00)
[2017-09-26 22:44] VITALS: BP 123/55
== END 2017-09-26 22:43 | disposition home or self-care (01) ==
LOC: ED 17:57
DX: E10.622 Type 1 diabetes mellitus with other skin ulcer (principal); L97.909 Non-pressure chronic ulcer of unspecified part of unspecified lower leg with unspecified severity
CPT/HCPCS: 96365; 99282; A9270-GY; J0696

== ENCOUNTER 2017-10-22 10:04 | Inpatient (IN) | payer MEDICARE ==
--- OUTSIDE RECORDS SUMMARY | 2017-10-22 10:20 | XMS REPORT ---
:1950 External Reference #:[id number] Author Organization [facility] Address [address] [place] [address] Phone [phone] Care Team Providers Name Role Phone Pablo Thomas M.D. 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 Primary Care Physician Unavailable Payers Type Date Identification Numbers Payment Provider Subscriber Commercial Policy Number: [id number] [employer] [facility] Moo Galeas [employer] Number: [id number] 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 Active Onset: 01/20/2014 Stomatitis Boubacar Franco M.D. Active Onset: 06/10/2013 Scar conditions and fibrosis of Boubacar Franco M.D. Active skin Onset: 12/11/2011 Cellulitis and abscess of neck Boubacar Franco M.D. Active Onset: 07/11/2011 Late effect of radiation Boubacar Franco M.D. Active Onset: 07/11/2011 Esophageal dysphagia Boubacar Franco M.D. Active Onset: 07/11/2011 Difficulty speaking Boubacar Franco M.D. 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 Cigarette Use Never Smoked Cigarettes Cigars Never Smoked Cigars Pipe Never Smoked A Pipe Smokeless Tobacco Never Used Smokeless Tobacco ETOH Use Denies alcohol use Smoking Patient has never smoked Allergies, Adverse Reactions, Alerts Date Description Reaction Status Severity Comments 12/04/2005 Penicillin active 12/04/2005 Avelox active 02/13/2007 Narcotics active 12/10/2012 Biaxin severe hypoglycemic rx active Medications Medication Date Status Form Strength Qnty SIG Indications Ordering Provider Novolog 04/16 Active Unknown Flexpen Prefilled Syringes Astelin Nasal 12/03 Active Solution 137mcg 1unit 2 Intranasal Unknown [place] s Puffs Each Nostril bid Flonase 12/03 Active Suspension 50mcg/Spr 1unit 2 Sprays Each ay s Nostril qd Pablo M.DMilli Albuterol 12/03 Active Aerosol 90mcg/Dos 2unit 2 Puffs Q4H , e s prn Pablo M.DMilli Singulair 12/03 Active 10mg 1 po qhs Pablo M.DMilli Lantus 12/03 Active Injection 100Units/ as directed q ML hs Pablo M.DMilli Synthroid Active Tablets 125mcg 1 po q am , Pablo M.DMilli Ibuprofen Active 200mg 3 po prn for pain Pablo M.DMilli Mucinex Active Tablets ER 600mg 120ta 2 by mouth , 12HR bs twice a day Pablo M.DMilli Advair HFA Active Aerosol 115/21 2 puffs bid , Pablo MMilliDMilli Aspir-[address] 81mg 1 po qd Garbo, Kendrick Barbour M.D. Tramadol HCL Active 50mg 1 po qid prn , Pablo MMilliDMilli Dyazide Active Capsules 37.5-25 90cap 1 by mouth , s every day Pablocharles Lowe Astepro Active Solution 0.15% 90uni 2 sprays , ts daily Pablo M.D. Biotene Dry Active Liquid 500ml 10cc gargle Shallish, Mouth and rinse Pablo M.D. Mouthwash three times a day Fiber Active Chewtabs 4 po qd Self Genteal Mild Active Solution 0.2% prn to eyes Shallish, Pablo M.D. Glucagon Active Kit 1mg as directed Shallviktoria, Emergency Kit Pablo M.D. Ketoconazole Active Shampoo as directed , Pablo M.D. Mupirocin Active Ointment 2% 66gm apply to Boubacar N. [facility] nose two r, M.D. times per day Omeprazole Active Capsules DR 20mg 60cap 1 tab by s mouth 30 min Pablo M.DMilli before breakfast and dinner Probiotic Active Capsules 1 po tid , Pablo M.DMilli Pinoptic Active Ointment bid to face , and ears Pabol M.DMilli Ventolin HFA Active Aerosol 108(90Bas 2unit 1-2 puffs e) s every 4 hours Apblo M.DMilli mcg/Act as needed for shortness of breathe use with spacer Fosamax Active Tablets 70mg 1 po qd , Pablo M.DMilli Eye Drops Active Solution 0.05% OTC Unknown Metronidazole Active Gel 0.75% As directed Jesse, Terence Lowe Montelukast Active Tablets 10mg Unknown Sodium Eplerenone Active Tablets 25mg Unknown Potassium Active Tablets ER 10Meq Unknown Chloride Margarita ER Fluticasone Active Suspension 50mcg/Act Unknown Propionate Humalog Active Solution 100Unit/M Unknown Kwikpen Pen-Inject L Erythromycin Active Ointment 5mg/GM Unknown Doxycycline Active Capsules 100mg Unknown Monohydrate Metolazone Active Tablets 2.5mg Shallish, /0000 Pablo M.DMilli Furosemide 00 Active Tablets 20mg Shallish, /0000 Pablo M.D. Cefuroxime Active Tablets 500mg Shallish, Axetil /0000 Pablo M.D. Clotrimazole 07/30 Hx Marii 10mg 70uni 1 by mouth 5 NMilli ts times a day Strominge - for 14 days rMynor 03/13 Bactrim DS 01/29 Hx Tablets 800-160mg 14tab 1 by mouth NMilli s twice a day Stromsulaiman - Mynor abdi 03/15 Nystatin Swish 12/22 Hx 3Week 100,000u K12.30 Boubacar NMilli And Sup nystatin- Strominge - 180cc;180 rMynor 09/14 centimeters diphenhydrami ne syrup;60mg hydrocortison e;1.5 gm tetracycline; rinse and swal Doxycycline 12/[address] 100mg 14cap 1 capuse by 682.1 Boubacar Chacko Hyclate Part s mouth 2 times Strominge - a day with Mynor abdi 06/24 food. direct sunlight. Clindamycin 08/11 Hx Solution 300mg/2ML 10Day 300 mg po q6h 784.2 Boubacar Chacko s with food Rush abdi M.D. 09/13 Flector 05/11 Hx Patches 1.3% 30uni apply to neck Boubacar Chacko ts every 12 Strominge - hours Mynor abdi 07/06 Neurontin 11/07 Hx Solution 250mg/5ML 90day 1 tsp po day Boubacar Ricco s one, then day Strominge - 2, then tid, Mynor abdi 04/28 slowly to 2 tsp po tid for symptom relief if needed Salagen 10/02 Hx Tablets 5mg 90day 1 PO tid Boubacar Ricco s Rush - Mynor abdi 07/06 Valium 12/25 Hx Tablets 5mg 4tabs 5 mg po prior Boubacar Chacko to MRI Rush abdi M.D. 01/09 Ultram 08/27 Hx Tablets 50mg 1 tab 3 to 4 times daily - 06/10 Nystatin 03/14 Hx Suspension 100,000Un 1Bott nystatin 528.0 Boubacar N. its/ML le 100,000U jin Pena M.D. 08/28 benadryl syrup 180cc, hydrocortison e 60mg, tetracycline 1.5gm. swish and swallow 10cc qid Normal Saline 01/03 Hx 1lite use to clean 144.9 Boubacar Chacko r stoma Rush abdi M.D. 01/30 Tylenol 12/11 Hx Unknown /2005 - 04/28 Advair Diskus 12/03 Hx Inhaler 250mcg;50 1unit 1 puff bid mcg s - 06/24 Mucinex 12/03 Hx Unknown /2005 - 08/28 Nystatin & 12/03 Hx Cream 100,000Un Unknown Triamcinolone its;0.1% - 06/10 Salagen 12/03 Hx 1 po tid Harsh. Rush abdi M.D. 10/02 Tilade 12/03 Hx Aerosol 1.75mg/Ac Unknown Inhalation /2005 tivation - 02/13 Diflucan 12/03 Hx Unknown /2005 - 07/06 Vospire 12/03 Hx Unknown Release - 02/13 Triamterene 12/03 Hx Tablets 25mg;37.5 Unknown & HCTZ /2005 mg - 02/13 Calcium W/Vit 12/03 Hx Unknown D /2005 - 12/21 Vitamin C 12/03 Hx Capsules 500mg /2005 - 07/06 Ibuprofen / Hx Unknown /2005 - 10/30 Restasis 12/03 Hx Unknown /2005 - 04/17 Albuterol 00/ Hx Tablets 4mg Unknown Sulfate / - 07/06 Tramadol HCL 00/00 Hx Unknown / - 12/10 Lidocaine 00/00 Hx Unknown / - 07/06 Benadryl 00/00 Hx Unknown /07/06 HCTZ/Triamtere 00/ Hx Unknown ne - 07/06 Restasis / Hx Emulsion 0.05% Unknown / - 01/09 Lozengers 00/00 Hx Unknown / - 07/06 Nystatin / Hx Unknown Liquid - 06/10 Vitamin D 00/00 Hx Unknown / - 06/24 Flomax 00/ Hx Unknown / - 12/21 Clotrimazole 00/00 Hx Lozenges 10mg 50uni 1 lozenge 5 Shallish, /0000 ts times a day Pablo Lowe - 07/30 Peptobismol 00/ Hx as directed [facility] Lemus / zaria Lopez - 09/03 Pepto-Bismol Hx Tablets 262mg As directed Kyle, Gale, - N.P. 09/03 Immunizations CPT Code Status Date Vaccine Lot # [id number] Given 07/14/2014 Influenza Virus Vaccine, 3 Years Of Age And Above, Intramuscular 12916 Given Unknown Prevnar 13 For Intramuscular Use Vital Signs Date Vital Result Comment 10/16/2017 BP Systolic 152 mmHg BP Diastolic 92 mmHg Heart Rate 85 /min Respiratory Rate 17 /min Weight 154.00 lb Weight in kg's 69.854 Height 62 inches 5'2" Height in cm's 157.5 cm BMI (Body Mass Index) 28.2 kg/m2 09/03/2017 BP Systolic 145 mmHg BP Diastolic 79 mmHg Heart Rate 93 /min Respiratory Rate 18 /min Weight 154.00 lb Weight in kg's 69.854 Height 62 inches 5'2" Height in cm's 157.5 cm BMI (Body Mass Index) 28.2 kg/m2 05/15/2017 BP Systolic 139 mmHg BP Diastolic 81 mmHg Heart Rate 81 /min Respiratory Rate 17 /min Weight 154.00 lb Weight in kg's 69.854 Height 62 inches 5'2" Height in cm's 157.5 cm BMI (Body Mass Index) 28.2 kg/m2 2016 BP Systolic 126 mmHg BP Diastolic 74 mmHg Heart Rate 68 /min Respiratory Rate 17 /min Weight 154.00 lb Weight in kg's 69.854 Height 62 inches 5'2" Height in cm's 157.5 cm BMI (Body Mass Index) 28.2 kg/m2 09/05/2016 BP Systolic 128 mmHg BP Diastolic 76 mmHg Heart Rate 75 /min Respiratory Rate 17 /min Weight 154.00 lb Weight in kg's 69.854 Height 62 inches 5'2" Height in cm's 157.5 cm BMI (Body Mass Index) 28.2 kg/m2 03/14/2016 BP Systolic 119 mmHg BP Diastolic 78 mmHg Heart Rate 95 /min Respiratory Rate 17 /min Weight 154.00 lb Weight in kg's 69.854 Height 62 inches 5'2" Height in cm's 157.5 cm BMI (Body Mass Index) 28.2 kg/m2 09/14/2015 BP Systolic 142 mmHg BP Diastolic 71 mmHg Heart Rate 82 /min Respiratory Rate 17 /min Weight 152.00 lb Weight in kg's 68.947 Height 62 inches 5'2" Height in cm's 157.5 cm BMI (Body Mass Index) 27.8 kg/m2 07/27/2015 BP Systolic 137 mmHg BP Diastolic 62 mmHg Heart Rate 88 /min Respiratory Rate 17 /min Weight 152.00 lb Weight in kg's 68.947 Height 62 inches 5'2" Height in cm's 157.5 cm BMI (Body Mass Index) 27.8 kg/m2 03/15/2015 BP Systolic 148 mmHg BP Diastolic 75 mmHg Heart Rate 84 /min Respiratory Rate 17 /min Weight 152.00 lb Weight in kg's 68.947 Height 62 inches 5'2" Height in cm's 157.5 cm BMI (Body Mass Index) 27.8 kg/m2 01/26/2015 BP Systolic 140 mmHg BP Diastolic 65 mmHg Heart Rate 77 /min Respiratory Rate 17 /min Weight 149.00 lb Weight in kg's 67.586 Height 62 inches 5'2" Height in cm's 157.5 cm BMI (Body Mass Index) 27.2 kg/m2 07/21/2014 BP Systolic 141 mmHg BP Diastolic 56 mmHg Heart Rate 91 /min Respiratory Rate 17 /min Weight 149.00 lb Weight in kg's 67.586 Height 62 inches 5'2" Height in cm's 157.5 cm BMI (Body Mass Index) 27.2 kg/m2 01/20/2014 BP Systolic 142 mmHg BP Diastolic 79 mmHg Heart Rate 86 /min Respiratory Rate 16 /min Weight 164.00 lb Weight in kg's 74.390 Height 62 inches 5'2" Height in cm's 157.5 cm BMI (Body Mass Index) 30.0 kg/m2 12/22/2013 BP Systolic 154 mmHg BP Diastolic 71 mmHg Heart Rate 82 /min Respiratory Rate 16 /min Weight 164.00 lb Weight in kg's 74.390 Height 62 inches 5'2" Height in cm's 157.5 cm BMI (Body Mass Index) 30.0 kg/m2 07/07/2013 BP Systolic 128 mmHg BP Diastolic 50 mmHg Heart Rate 84 /min Respiratory Rate 16 /min Weight 164.00 lb Weight in kg's 74.390 Height 62 inches 5'2" Height in cm's 157.5 cm BMI (Body Mass Index) 30.0 kg/m2 06/10/2013 BP Systolic 144 mmHg BP Diastolic 63 mmHg Heart Rate 85 /min Respiratory Rate 16 /min Weight 163.00 lb Weight in kg's 73.937 Height 62 inches 5'2" Height in cm's 157.5 cm BMI (Body Mass Index) 29.8 kg/m2 12/10/2012 BP Systolic 135 mmHg BP Diastolic 63 mmHg Heart Rate 86 /min Respiratory Rate 16 /min Weight 161.00 lb Weight in kg's 73.030 Height 62.25 inches 5'2.25" Height in cm's 158.1 cm BMI (Body Mass Index) 29.2 kg/m2 06/24/2012 BP Systolic 128 mmHg BP Diastolic 64 mmHg Heart Rate 83 /min Respiratory Rate 16 /min Weight 158.00 lb Weight in kg's 71.669 Height 62.24 inches 5'2.25" Height in cm's 158.1 cm BMI (Body Mass Index) 28.7 kg/m2 12/19/2011 BP Systolic 147 mmHg BP Diastolic 72 mmHg Heart Rate 86 /min Respiratory Rate 16 /min Weight 257.00 lb Weight in kg's 116.575 Height 65 inches 5'5" Height in cm's 165.1 cm BMI (Body Mass Index) 42.8 kg/m2 11/13/2011 BP Systolic 142 mmHg BP Diastolic 59 mmHg Heart Rate 91 /min Respiratory Rate 16 /min Weight 257.00 lb Weight in kg's 116.575 Height 65 inches 5'5" Height in cm's 165.1 cm BMI (Body Mass Index) 42.8 kg/m2 07/11/2011 BP Systolic 155 mmHg BP Diastolic 78 mmHg Heart Rate 99 /min Respiratory Rate 16 /min Weight 257.00 lb Weight in kg's 116.575 Height 65 inches 5'5" Height in cm's 165.1 cm BMI (Body Mass Index) 42.8 kg/m2 04/28/2008 BP Systolic 133 mmHg BP Diastolic 72 mmHg Heart Rate 81 /min Respiratory Rate 16 /min 02/27/2007 BP Systolic 122 mmHg BP Diastolic 66 mmHg Heart Rate 98 /min Respiratory Rate 16 /min 06/25/2006 BP Systolic 120 mmHg BP Diastolic 77 mmHg Heart Rate 91 /min Respiratory Rate 16 /min Results Test Date Test Result H/L Range Note Laboratory test finding 07/27/2015 Culture Throat SEE RESULT BELOW 1 Fungus Smear SEE RESULT BELOW 2 Culture And 06/25/2012 M <SEE 3 Sensitivity NOTE> Laboratory test 12/11/2011 Surgical Pathology <SEE 4 finding NOTE> Laboratory test 03/04/2010 BUN 13 mg/dL 6-24 finding Laboratory test 08/02/2009 Cytology Non Engraving Operator <SEE 5 finding NOTE> Xray 03/25/2007 Barium Swallow normal Xray 01/17/2007 CT Abdomen With no cancer in neck Contrast Xray 01/15/2007 Chest X-ray PA NAD & Lateral Surgical Pathology 12/20/2005 Surgical Pathology <SEE 6 NOTE> Laboratory test 12/20/2005 Surgery Pathology surgical resection finding Xray 12/18/2005 Chest X-ray PA nad & Lateral Xray 12/18/2005 CT Chest/Abdomen ovarian mass W/Contrast Laboratory test 12/13/2005 Biopsy Oral Cavity SCCA finding 1 SEE RESULT BELOW Name: MOO GALEAS : [address]: Boubacar Franco MD Acct: [id number] Unit: [id number] AGE: 64 Location: [facility] Re07/27/15 SEX: F Status: REG REF SPEC: [id number] GENET: 07/27/15-[address] [facility] [facility] [address]: Boubacar Franco MD REQ: [id number] RECD: 07/28/15 STATUS: COMP _ SOURCE: THROAT SPDESC: ORDERED: Throat Culture, Fungal Smear COMMENTS: FUNGAL SMEAR: 2+ YEAST Procedure Result Verified Site Throat Culture Final 07/30/15- 0923 ML Organism 1 MERRILL ALBICANS Quantity 2+ Organism 2 NORMAL TED Quantity 2+ Throat cultures are clinically indicated to detect the presence of group A strep, arcanobacterium and yeast. In certain cases, predominating organisms will be reported. Fungal Smear Final 07/28/15- 1538 ML Fungal Findings 2+ Yeast * ML - MAIN LAB ([facility]) . END OF REPORT * ML=Testing performed at Main Lab DEPARTMENT OF PATHOLOGY, [address] [place] [address] Tarun Teague M.D. Director [facility] # [id number] 2 SEE RESULT BELOW Name: MOO GALEAS : [address]: Boubacar Franco MD Acct: [id number] Unit: [id number] AGE: 64 Location: [facility] Re07/27/15 SEX: F Status: REG REF SPEC: [id number] GENET: 07/27/15-[address]: Boubacar Franco MD REQ: [id number] RECD: 07/28/15120 STATUS: RES _ SOURCE: THROAT SPDESC: ORDERED: Throat Culture, Fungal Smear Procedure Result Verified Site Throat Culture PENDING Fungal Smear Final 07/28/15- 1538 ML Fungal Findings 2+ Yeast * ML - MAIN LAB ([facility]) . END OF REPORT * ML=Testing performed at Main Lab DEPARTMENT OF PATHOLOGY, [address] [place] [address] Tarun Teague M.D. Director [facility] # [id number] RUN DATE: 06/26/12 [facility] NMI LIVE PAGE 1 RUN TIME: 1112 Specimen Inquiry RUN USER: INTERFACE Name: MOO GALEAS Status: REG REF Re06/24/12 Age/Sex: 61/F Unit#: [id number] Location: [facility] : 50 SPEC #: [id number] GENET: 06/25/12 STATUS: BOLIVAR REQ #: [id number] RECD: 06/25/[address]: Boubacar Franco MD SOURCE: WOUND ENTR: 06/25/[address]: RABIA: FACE ORDERED: CULT SENS/GS ACT WKST: B 06/26/12 #1 Procedure Result Verified Site > CULTURE SENSITIVITY Final -1112 ML FINAL: NO GROWTH DAY 2 > GRAM STAIN SMEAR Final -1020 ML POLYS NONE SMEAR: NO ORGANISMS SEEN ML - [facility] Permit #[id number] [address] [place] [address] DEPARTMENT OF PATHOLOGY, [address] [place] [address] [facility] Permit #[id number] Mynor Harley M.D. Supervisor Metalizing 4 --- RUN DATE: 12/14/11 [facility] NMI LIVE PAGE 1 RUN TIME: 1530 Specimen Inquiry RUN USER: INTERFACE -- Name: MOO GALEAS Status: REG REF Re12/11/11 Age/Sex: 61/F Unit#: [id number] Location: [facility]. : 50 -- Specimen: [id number] SOUT Spec Date:12/11/[address] [facility] [address]: Boubacar beck MD Spec Type: SURGICAL P Received:12/12/11-1207 Copies to: SPECIMEN LEFT NECK ABSCESS/INFECTION HISTORY PRE-OP DIAGNOSIS: Left neck abscess/infection GROSS DESCRIPTION The specimen is received in formalin labelled Moo Galeas, Abscess, Left Neck, and consists of a few irregular fragments of white-giraldo tissue measuring in aggregate 0.8 x 0.5 x 0.4 cm. The specimen is filtered. Submitted entirely, one cassette. DIAGNOSIS Skin, left neck, biopsy: A. Squamous mucosa with marked reactive changes, inflamed crust, and detached fragments of granulation tissue. B. GMS stain is negative for fungi (controls worked). Signed Electronically by: MIGUELINA ROSS 12/14/11 1530 -- -- DEPARTMENT OF PATHOLOGY, [address] [place] [address] [facility] Permit #[id number] Mynor Harley M.D. Assistant Dir sanaz -- 5 --- RUN DATE: 08/03/09 [facility] NMI LIVE PAGE 1 RUN TIME: 1218 Specimen Inquiry RUN USER: INTERFACE -- Name: MOO GALEAS Status: REG REF Re08/02/09 Age/Sex: 58/F Unit#: [id number] Location: [facility]. : 50 -- Specimen: [id number] SOUT Spec Date: 08/02/[address] [facility] [address]: Boubacar trevino MD Spec Type: CYTOLOGY Received: 08/03/09 Copies to: SOURCE FINE NEEDLE ASPIRATION right neck mass PATIENT INFORMATION ACTUAL COLLECTION DATE: 08/02/09 PATIENT HISTORY: right neck mass GROSS DESCRIPTION 4 alcohol fixed slide(s) received from clinician, with moderate material. Needle rinse in Cytolyt solution for cell block. DIAGNOSIS Neck, right, FNA: Suppurative and granulomatous inflammation (see comment). COMMENT The aspirate smears show a somewhat airdried specimen and show numerous neutrophils and tingible body macrophages, a few multinucleated giant cells and few poorly formed granulomas. Several bizarre cells with markedly enlarged nuclei and macronucleoli are also seen, interpreted as radiation effect. No definitive evidence of metastatic squamous cell carcinoma is seen. A cell block was prepared in the evaluation of this specimen and is acellular. Dr. Teague has reviewed the case and agrees with the diagnosis. The case was discussed with Dr. Henderson on 08/03/2009. Initial evaluation performed by Satish SCHAFFER([facility]) 08/03/09 Final Interpretation electronically signed by: MIGUELINA ROSS 08/03/09 1218 -- -- DEPARTMENT OF PATHOLOGY, [address] [place] [address] [facility] Permit #[id number] Mynor Harley M.D. Assistant Dir sanaz -- 6 --- RUN DATE: 05/25/09 [facility] NMI LIVE PAGE 1 RUN TIME: 1217 Specimen Inquiry RUN USER: INTERFACE -- Name: MOO GALEAS Status: DIS IN Re12/20/05 Age/Sex: 55/F Unit#: [id number] Location: [facility]. 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 strip of soft pink-red tissue. The specimen is bisected and submitted in its entirety for frozen section analysis as FS1. 2) The specimen is received in formalin labelled Moo Galeas, Deep Muscle of Tongue and consists of a 3.0 x 1.0 x 0.6 cm. strip of soft coffey to red tissue with coffey discoloration compatible with cautery artifact on one surface. The opposite surface is erythematous. The cauterized surface is inked black and the specimen is submitted in its entirety as FS2. 3) The specimen is received in formalin labelled Moo Mcneil Danagiulia, Deep Tongue #2 and consists of a 1.2 x 0.6 x 0.3 cm. strip of rubbery coffey to pink tissue. The apparent cauterized surface is inked black and the specimen is submitted for frozen section analysis after bisecting it in one block. 4) The specimen is received in formalin labelled Moo Galeas, Mucosal Ventral Surface of Tongue and consists of a single 2.5 x 0.3 x 0.2 cm. strip of soft pink-red tissue. The entire specimen is submitted in one block as FS4. 5) The specimen is received in formalin labelled Moo Galeas, Lateral Margin of Tongue and consists of a 7.0 x 0.2 x 0.2 cm. strip of pink tissue with a suture marking the anterior end. The anterior end is inked black and the specimen is submitted for frozen section analysis as FS5. -- DEPARTMENT OF PATHOLOGY, [address] [place] [address] [facility] Permit #[id number] Mynor Harley M.D. Physician Assistant Certified Dir yo -- -- RUN DATE: 05/25/09 [facility] NMI LIVE PAGE 2 RUN TIME: 1217 Specimen Inquiry RUN USER: INTERFACE -- Name: MOO GALEAS Status: DIS IN Re12/20/05 Age/Sex: 55/F Unit#: [id number] [facility] 50 -- -- CONTINUED -- GROSS DESCRIPTION (Continued) 6) The specimen is received in formalin labelled Moo Galeas, Base of Tongue Margin Suture Anterior and consists of a single 2.8 x 0.3 x 0.2 cm. strip of soft pink tissue with a suture marking the anterior end. The anterior end of the specimen is inked black and the specimen is submitted in its entirety as FS6. 7) The specimen is received in formalin labelled Moo Galeas, Composite Resection Tongue and Floor of Mouth and consists of a partially mucosally covered fibromuscular soft tissue fragment measuring 6.0 x 4.2 x 2.4 cm. The mucosal surface is coffye and wrinkled with a central indurated ulcer measuring up to 3.9 cm. and approximating one of the margins of resection. A long orienting suture is identified adjacent to the ulcerated area and is designated twelve o'clock. The specimen is radially sectioned and submitted in clockwise fashion from A to L. 8) The specimen is received in formalin labelled Moo Galeas, Modified Radical Neck and consists of a 19.0 x 6.5 x 3.5 cm. strip of irregular torn coffey to brown tissue including a portion of salivary gland at the superior end with the jugular vein seen running along the surface. The jugular vein is opened revealing a patent lumen. The specimen is then divided into superior and inferior halves and serially sectioned. The salivary gland measures 4.5 x 3.5 x 1.5 cm. and has a lobulated coffey to yellow external surface and a yellow cut surface. There are several enlarged firm yellow-white lymph nodes seen in proximity to and within the salivary gland. These measure up to 1.2 cm. in diameter. The sternocleidomastoid muscle is dark purple-red and runs along the length of the specimen. On serial sectioning multiple additional lymph nodes are identified throughout the length of the specimen. Bear Keeper sections are submitted in eight blocks labelled 8A through 8H as follows: 8A - sternocleidomastoid muscle and community health program representative cross section of jugular vein, 8B through 8E - superior lymph nodes, 8F through 8H - inferior lymph nodes. 9) The specimen is received in formalin labelled Moo Galeas, Right Selective Neck Dissection and consists of two irregular strips of coffey tissue. The smaller specimen is a 10.0 x 1.5 x 1.5 cm. strip of fatty to slightly rubbery coffey to yellow tissue. The larger portion is irregular with several tears and measures 8.5 x 6.5 cm. This dimension includes a 3.3 x 2.2 x 1.5 cm. portion of lobulated yellow adipose tissue. The remainder of this portion of the specimen is coffey and shaggy. The smaller strip of tissue is serially sectioned revealing multiple tiny palpable lymph nodes and several that measure up to 0.6 cm. in diameter. These lymph nodes are all isolated and retained for microscopic examination. -- DEPARTMENT OF PATHOLOGY, [address] [place] [address] [facility] Permit #[id number] Mynor Harley M.D. Assistant Dir ector -- -- RUN DATE: 05/25/09 [facility] NMI LIVE PAGE 3 RUN TIME: 1217 Specimen Inquiry RUN USER: INTERFACE -- Name: MOO GALEAS Accbal#: [id number] Status: DIS IN Re12/20/05 Age/Sex: 55/F Unit#: [id number] Location: [facility] : 50 -- -- CONTINUED -- GROSS DESCRIPTION (Continued) The larger portion of the specimen is then serially sectioned. This reveals the salivary gland to have a lobulated coffey to coffey-pink cut surface. The remaining tissue is fibrofatty yellow to coffey tissue with several additional lymph nodes identified. All identified lymph nodes are isolated and retained for microscopic examination. Bear Keeper sections are submitted in four blocks labelled 9A through 9D as follows: 9A and 9B - multiple lymph nodes from separately submitted strip of tissue, 9C - salivary gland, 9D - remaining lymph nodes. PATH CONSULT DURING SURGERY Frozen section (FS)/Touch Prep (TP)/Gross Consult (GC) FS1) Anterior margin - No invasive malignancy (WEF). FS2) Deep muscle tongue - No invasive malignancy (WEF). FS3) Deep muscle tongue #2 - No invasive malignancy (WEF). FS4) Mucosal ventral surface of tongue - No invasive malignancy (WEF). FS5) Lateral margin of tongue - No invasive malignancy (WEF). FS6) Base of tongue margin - No invasive malignancy (WEF). DIAGNOSIS 1) Oral mucosa, anterior margin, biopsy - A) Benign salivary gland tissue, fibroadipose and squamous mucosa. B) No evidence of malignancy. 2) Soft tissue, deep muscle of tongue, biopsy - A) Skeletal muscle and salivary gland tissue. B) No evidence of malignancy. 3) Tongue, deep, biopsy - A) Skeletal muscle tissue. -- DEPARTMENT OF PATHOLOGY, [address] [place] [address] [facility] Permit #[id number] Tarun Teague M.D. Director Miguelina Ross M.D. Physician Assistant Certified Dir sanaz -- -- RUN DATE: 05/25/09 [facility] NMI LIVE PAGE 4 RUN TIME: 1217 Specimen Inquiry RUN USER: INTERFACE -- Name: DANAMOO ALLISON Amelia Status: DIS IN Re12/20/05 Age/Sex: 55/F Unit#: [id number] Location: [facility]. : 50 -- -- CONTINUED -- DIAGNOSIS (Continued) B) No evidence of malignancy. 4) Oral, mucosa, ventral surface of tongue, biopsy - A) Squamous mucosa with underlying connective tissue and muscle. B) No evidence of malignancy. 5) Oral mucosa, lateral margin of tongue, biopsy - A) Squamous mucosa. B) No evidence of malignancy. 6) Oral mucosa, base of tongue, margin, suture anterior, biopsy - A) Squamous mucosa underlying salivary gland tissue, connective tissue, and skeletal muscle. B) No evidence of malignancy. 7) Composite resection tongue and floor of mouth, excision - A) Invasive squamous cell carcinoma, keratinizing, moderately differentiated. B) Tumor measures up to 4.2 cm. in maximal span and invades to a maximal thickness of 1.2 cm. C) Tumor approaches to within 0.1 cm. of inked margin on main specimen (see comment). D) Tumor pattern of invasion: Infiltrative. E) Lymphatic/vascular invasion: No definite lymphatic vascular invasion identified. F) TNM Histopathologic Stage: [id number], Stage MOY. 8) Neck, left, modified radical dissection - A) Eight of twenty four lymph nodes with metastatic keratinizing squamous cell carcinoma (8/24). B) Largest metastatic lesion, 1.5 cm. C) Focal extracapsular extension identified. D) Skeletal muscle with no significant pathologic abnormality. E) Salivary gland tissue with no significant pathologic abnormality. 9) Neck, right, selective dissection - A) One of thirteen lymph nodes with metastatic squamous cell carcinoma (1/13). B) Salivary gland tissue with focal chronic inflammation. -- DEPARTMENT OF PATHOLOGY, [address] [place] [address] [facility] Permit #[id number] Tarun Teague M.D. Director Miguelina Ross M.D. Physician Assistant Certified sanaz -- -- RUN DATE: 05/25/09 [facility] NMI LIVE PAGE 5 RUN TIME: 1217 Specimen Inquiry RUN USER: INTERFACE -- Name: DANAGIULIAMOO Status: DIS IN Re12/20/05 Age/Sex: 55/F Unit#: [id number] Location: [facility] : 50 -- -- CONTINUED -- COMMENT Tumor cells are present in close proximity (less than 1hpf) of the mid deep margin on slide 7D of the main resection specimen. Seperately submitted deep margin specimens are negative. ADDENDUM Addendum #1 Entered: 05/25/09-[address] Franco's request this case was re-reviewed and an immunohistochemical stain for P16 was performed to evaluate for the possibility of HPV related disease. A P16 stain was performed at [facility] ([place], [place]) with appropriate controls and interpreted by [facility] and is positive. P16 staining (a sensitive marker of HPV infection and proliferation) decorates the superficial and keratinized areas of the tumor as well as focal superficial invasive disease. The more deeply invasive disease which demonstrates less defined squamous differentiation also demonstrates patchy scattered positive cells. These features are interpreted to indicate that this lesion may represent HPV related disease. Addendum Review (signature on file) TARUN TEAGUE MD 05/25/09 -- Signed Electronically by: TARUN TEAGUE MD 12/25/05 0932 -- -- DEPARTMENT OF PATHOLOGY, [address] [place] [address] [facility] Permit #[id number] Tarun Teague M.D. Director Miguelina Ross M.D. Physician Assistant Certified Dir sanaz -- Procedures Date CPT Code Description Status 03/15/2015 24903 Flex Fiberoptic End Of Swallow Ta Completed 03/15/2015 87208 Eval Of Swallowing Function Oral Completed 01/26/2015 41285 Fiberoptic Laryngoscopy Completed 12/11/2011 82322 Incision/Abscess Submental Completed 07/11/2011 89543 Fiberoptic Laryngoscopy Completed 01/09/2011 46018 Fiberoptic Laryngoscopy Completed 07/06/2010 73296 Nasal Endoscopy, Diagnostic Completed 08/02/2009 96567 Aspiration, Fine Needle Completed 11/09/2008 82019 Nasal Endoscopy, Diagnostic Completed 11/20/2007 43908 Interest Income Completed 10/02/2007 08866 Fiberoptic Laryngoscopy Completed 05/14/2006 24553 Medical Records Completed 03/14/2006 35244 Pre- Or Post-Op Visit Completed 01/30/2006 80909 Pre- Or Post-Op Visit Completed 01/03/2006 95403 Eval Of Swallowing Function Oral Completed 01/03/2006 23716 Pre- Or Post-Op Visit Completed 12/20/2005 36814 Glossectomy,Partial W/ Unilateral Radical Neck Completed Dissection 12/20/2005 85049 Glossectomy,Partial W/ Unilateral Radical Neck Completed Dissection 12/20/2005 06894 Modified Radical Neck Dissection Completed 12/20/2005 70298 Modified Radical Neck Dissection Completed 12/20/2005 55895 Tracheostomy Completed 12/20/2005 08020 Tracheostomy Completed 12/20/2005 01699 Split Graft Completed 12/20/2005 52551 Split Graft Completed Encounters Type Date Location Provider CPT E/M Dx Office Visit 10/16/2017 [place],After 10/01/07 Boubacar Chacko 43176 Z85.810 2:15p Mynor Franco Office Visit 09/03/2017 [place],After 10/01/07 Boubacar Chacko 12668 Z85.810 2:00p Mynor Franco L59.9 M54.12 Office Visit 05/15/2017 11:00a [place],After 10/01/07 Boubacar Chacko 92096 Z85.810 Mynor Franco Office Visit 2016 3:45p [place],After 10/01/07 Boubacar Chacko 84299 S00.532A Mynor Franco Office Visit 09/05/2016 11:15a [place],After 10/01/07 Boubacar Chacko 52971 L59.9 Mynor Franco Z85.810 M26.601 Office Visit 03/14/2016 11:15a [place],After 10/01/07 Boubacar Chacko 52591 Z85.810 Mynor Franco M50.11 L59.9 M54.12 Office Visit 09/14/2015 10:45a [place],After 10/01/07 Boubacar Chacko 44378 Z85.810 Mynor Franco K12.33 K11.7 J34.81 R13.14 Office Visit 07/27/2015 4:00p [place],After 10/01/07 Boubacar Franco 86249 K12.30 M.DMilli J02.8 Office Visit 07/21/2014 11:15a [place],After 10/01/07 Boubacar Franco 55994 528.00 M.D. 144.9 909.2 478.11 787.24 Office Visit 01/20/2014 11:15a [place],After 10/01/07 Boubacar Franco 95600 528.00 M.D. Office Visit 12/22/2013 10:45a [place],After 10/01/07 Boubacar Franco 81644 144.9 M.D. 909.2 723.4 528.00 709.2 Office Visit 07/07/2013 1:45p [place],After 10/01/07 Boubacar Franco 39371 787.24 M.D. Office Visit 06/10/2013 11:15a [place],After 10/01/07 Boubacar Franco 82423 144.9 M.D. 709.2 787.24 Office Visit 12/10/2012 10:45a [place],After 10/01/07 Boubacar Franco 64776 682.1 M.D. 144.9 709.2 473.0 Office Visit 06/24/2012 11:00a [place],After 10/01/07 Boubacar Franco, 60437 682.1 M.D. 144.9 Office Visit 12/19/2011 10:15a [place],After 10/01/07 Boubacar Franco, 61617 682.1 M.D. Office Visit 11/13/2011 11:15a [place],After 10/01/07 Boubacar Franco, 96431 144.9 M.D. 787.24 682.1 784.0 Office Visit 07/11/2011 10:45a [place],After 10/01/07 Boubacar Franco, 14268 144.9 M.D. 784.49 787.24 909.2 709.2 Office Visit 01/09/2011 11:00a [place],After 10/01/07 Boubacar Franco, 65466 144.9 M.D. 473.0 784.49 250.00 Office Visit 07/06/2010 2:00p [place],After 10/01/07 Boubacar Franco, 77639 144.9 M.D. 473.0 250.00 Office Visit 03/07/2010 11:00a [place],After 10/01/07 Boubacar Franco, 84640 723.4 M.D. 144.9 250.00 Office Visit 09/13/2009 11:00a [place],After 10/01/07 Boubacar Franco, 83303 784.2 M.D. 198.89 250.00 Office Visit 08/11/2009 2:15p [place],After 10/01/07 Boubacar Franco, 13011 784.2 M.D. 250.00 Office Visit 08/02/2009 10:15a [place],After 10/01/07 Boubacar Franco, 06175 784.2 M.D. 723.4 473.0 250.00 Office Visit 05/11/2009 11:00a [place],After 10/01/07 Boubacar Franco, 18744 144.9 M.D. 723.4 473.0 787.24 250.00 Office Visit 11/09/2008 3:15p [place],After 10/01/07 Boubacar Franco, 81767 144.9 M.D. 473.0 250.00 Office Visit 04/28/2008 3:45p [place],After 10/01/07 Boubacar Franco, 92915 144.9 M.D. 723.4 250.00 Office Visit 10/02/2007 4:00p [place],After 10/01/07 Boubacar Franco, 47789 144.9 M.D. 723.4 909.2 729.2 250.00 784.49 Office Visit 05/29/2007 4:00p [place],After 10/01/07 Boubacar Franco 62665 144.9 M.D. 729.2 250.00 Office Visit 02/27/2007 4:00p [place],After 10/01/07 Boubacar Franco 69308 144.9 M.D. 909.2 723.4 787.2 250.00 Office Visit 10/30/2006 3:45p [place],After 10/01/07 Boubacar Franco, 13448 V10.02 M.D. 723.4 909.2 250.00 Office Visit 08/28/2006 3:45p [place],After 10/01/07 Boubacar Franco, 94780 144.9 M.D. 198.89 250.00 Office Visit 06/25/2006 3:45p [place],After 10/01/07 Boubacar Franco 78457 144.9 M.D. 198.89 787.2 112.0 250.00 473.0 Office Visit 04/17/2006 3:45p [place],After 10/01/07 Boubacar Franco 16274 144.9 M.D. 528.0 250.00 Office Visit 12/12/2005 9:15a [place],After 10/01/07 Boubacar Franco, 27748 250.00 M.D. 144.9 198.89 Plan of Care 10/16/2017 - Boubacar Franco M.D.Z85.810 Personal history of malignant neoplasm of tongueComments:The ulcer I was concerned about is gone. But I am a bit concerned about a different area. It seems that with her illnesses She may continue with different areas of breakdown. I will keep a close eye on her.Follow up:FU 3 months
--- NOTE | 2017-10-22 10:46 | RAD ---
HISTORY: Hypoglycemia COMPARISONS: October 12, 2017 VIEWS: 1: frontal portable view of the chest at 10:34 AM FINDINGS: LINES AND TUBES: None. CARDIOMEDIASTINAL SILHOUETTE: The cardiomediastinal silhouette is normal for portable technique. PLEURA: The costophrenic angles are sharp. No pleural abnormalities are noted. LUNG PARENCHYMA: The lungs are clear. ABDOMEN: The upper abdomen is clear. There is no subphrenic gas. BONES AND SOFT TISSUES: No bone or soft tissue abnormalities are noted. IMPRESSION: NO ACTIVE CARDIOPULMONARY DISEASE.
[2017-10-22] MEDS ORDERED: NS 0.9% 1000 ML*IV.FLUID IV ONE (10:55)
[2017-10-22] MEDS ORDERED: INSULIN REGULAR IV SCH (11:00)
[2017-10-22] MEDS ORDERED: NS 0.9% IV SCH (11:00)
[2017-10-22 11:14] LABS: EGFR Non-African American 25.4 (>60); INR 0.9 (0.77-1.02)
[2017-10-22 11:20] LABS: Hematocrit 34 % (35-47); Hemoglobin 9.3 g/dl (12.0-16.0); Mean Corpuscular HGB Conc 27 g/dl (31-36); Mean Corpuscular Hemoglobin 26 pg (27-31); Mean Corpuscular Volume 95 fL (80-97); Mean Platelet Volume 10 um3 (7.4-10.4); Platelet Count 366 10^3/ul (150-450); Red Blood Count 3.63 10^6/ul (4.0-5.4); Red Cell Distribution Width 22 % (10.5-15); White Blood Count 10.2 10^3/ul (3.5-10.8)
[2017-10-22 11:27] LABS: Monocytes % 8 % (0-13)
[2017-10-22] MEDS: Insulin REGULAR(*) 1 UNITS UNIT IV PUSH ONE (11:37)
--- NOTE | 2017-10-22 13:03 | ED ---
Tessa Cho Nilda, scribed for Adali Coy MD on 10/22/17 at 1054 . HPI Diabetic - HPI Summary HPI Summary: LVL 5 CAVEAT: Hx and PE is limited due to pt's AMS. This patient is a 66 year old F BIBA accompanied by with a chief complaint of sudden onset, constant AMS since this morning. states pt was difficult to wake and was incoherent upon waking up. He notes blood sugar reading was high [employer] and called the ambulance at 0945. Per , pt has been on Cefuroxime 500mg BID for PNA in left lung since 10/12/17. PMHx Type 1 DM ( controlled with insulin shots every day). Per EMS glucose reading was also "high " enroute. Vitals upon entering room: BP 99/40 Temp 96.5 F Pulse 100 bpm O2 Sat 98 - History Of Current Complaint Time Seen by Provider: 10/22/17 10:09 Hx Obtained From: Family/Public Opinion Survey Taker - , EMS Onset/Duration: Sudden Onset, Lasting Minutes, Still Present Timing: Constant Severity Initially: Severe Severity Currently: Severe Character: Lethargic, Other - incoherent Aggravating: Recent Illness - PNA on antibiotics since 10/12/17 Alleviating: Nothing Associated Signs & Symptoms: Decreased Level of Conciousness Related History: DM I, Insulin Requiring - Allergies/Home Medications Allergies/Adverse Reactions: Allergies Allergy/AdvReac Type Severity Reaction Status Date / Time Morphine Allergy Mild Unknown Verified 09/15/17 03:23 Reaction Details Clarithromycin [From Biaxin] Allergy Unknown Unknown Verified 09/15/17 03:23 Reaction Details Codeine Allergy Unknown Unknown Verified 09/15/17 03:23 Reaction Details Dust Mite Extract Allergy Unknown Unknown Verified 09/15/17 03:23 Reaction Details Gabapentin [From Neurontin] Allergy Unknown Unknown Verified 09/15/17 03:23 Reaction Details Iodinated Contrast Media Allergy Unknown SEE Verified 09/15/17 03:23 [CONTRAST DYE] COMMENT Lactose Intolerance (GI) Allergy Unknown Unknown Verified 09/15/17 03:23 Reaction Details Meperidine [From Demerol HCl] Allergy Unknown Unknown Verified 09/15/17 03:23 Reaction Details Molds & Smuts Allergy Unknown Unknown Verified 09/15/17 03:23 Reaction Details Moxifloxacin [From Avelox] Allergy Unknown Rash Verified 09/15/17 03:23 Nickel Allergy Unknown Rash And Verified 09/15/17 03:23 Itching Penicillins [PCN] Allergy Unknown Rash Verified 09/15/17 03:23 Pollen Extract Allergy Unknown Unknown Verified 09/15/17 03:23 Reaction Details Propoxyphene [From Darvon] Allergy Unknown Unknown Verified 09/15/17 03:23 Reaction Details Soy Allergy Allergy Unknown Unknown Verified 09/15/17 03:23 Reaction Details Terconazole [From Terazol] Allergy Unknown Unknown Verified 09/15/17 03:23 Reaction Details Tetanus Toxoid Allergy Unknown See Verified 09/15/17 03:23 Comment Gluten Meal AdvReac Unknown GI Upset Verified 09/15/17 03:23 k y jelly Allergy Unknown Unknown Uncoded 09/15/17 03:23 Reaction Details narcotics Allergy Unknown Nausea And Uncoded 09/15/17 03:23 Vomiting Home Medications: Home Medications Aspirin EC Low Dose* [Ecotrin EC Low Dose 81 MG*] 81 mg PO DAILY 10/22/17 [ History Confirmed 10/22/17] Azelastine 0.15% NASAL(NF) [Astepro 0.15% NASAL (NF)] 2 spray BOTH NARES DAILY 10/22/17 [History Confirmed 10/22/17] Calcipotriene 0.005 % TOPICAL BID 10/22/17 [History Confirmed 10/22/17] Denosumab(NF) [Prolia(NF)] 60 mg SUBCUT .Q 6 MONTHS 10/22/17 [History Confirmed 10/22/17] Fluticas/Salmet 230/21 HFA(NF) [Advair HFA 23O/21 (NF)] 2 puff INH BID 10/22/17 [History Confirmed 10/22/17] Fluticasone NASAL SPRAY 50MCG* [Flonase NASAL SPRAY 50MCG*] 2 spray BOTH NARES DAILY 10/22/17 [History Confirmed 10/22/17] Furosemide TAB* [Lasix TAB*] 40 mg PO DAILY 10/22/17 [History Confirmed 10/22/17 ] Hydrocortisone 2.5% CREAM(NF) 1 applic TOPICAL BID 10/22/17 [History Confirmed 10/22/17] Insulin GLARGINE(*) [Lantus(*)] 24 units SUBCUT BEDTIME 10/22/17 [History Confirmed 10/22/17] Insulin LISPRO* [HumaLOG*] 1 - 100 units SUBCUT AC 10/22/17 [History Confirmed 10/22/17] Metolazone TAB* [Zaroxolyn TAB*] 2.5 mg PO DAILY 10/22/17 [History Confirmed ] Simethicone TAB* [Mylicon TAB*] 80 mg PO Q6H PRN 10/22/17 [History Confirmed ] Sulfamethox/Trimethoprim SUSP* [Bactrim Susp*] 20 ml PO BID 10/22/17 [History Confirmed 10/22/17] Triamcinolone 0.1% CREAM(NF) [Kenalog Cream 0.1%(NF)] 1 applic TOPICAL BID 10/22 [History Confirmed 10/22/17] ceFUROXime TAB(*) [Ceftin TAB 250 MG(*)] 500 mg PO BID 10/22/17 [History Confirmed 10/22/17] traMADol TAB* [Ultram*] 100 mg PO Q8H PRN 10/22/17 [History Confirmed 10/22/17] PMH/Surg Hx/FS Hx/Imm Hx Endocrine/Hematology History: Reports: Hx Blood Disorders - Thalasemia minor, Hx Diabetes - type I, not on pump , Hx Thyroid Disease, Other Endocrine/ Hematological Disorders - Sjogren's Denies: Hx Anticoagulant Therapy - baby aspirin Cardiovascular History: Reports: Hx Angina, Other Cardiovascular Problems/ Disorders - TACHYCARDIA Denies: Hx Coronary Artery Disease, Hx Hypercholesterolemia, Hx Hypertension , Hx Myocardial Infarction, Hx Pacemaker/ICD, Hx Valvular Heart Disease Respiratory History: Reports: Hx Asthma, Hx Seasonal Allergies Denies: Hx Chronic Obstructive Pulmonary Disease (COPD) GI History: Reports: Hx Irritable Bowel History: Denies: Hx Renal Disease Musculoskeletal History: Reports: Hx Arthritis Sensory History: Denies: Hx Hearing Aid Neurological History: Reports: Other Neuro Impairments/Disorders - TINNITUS Denies: Hx Dementia, Hx Seizures Psychiatric History: Denies: Hx Panic Disorder - Cancer History Cancer Type, Location and Year: squamous cell head and neck cancer s/p surg Hx Chemotherapy: Yes - MOUTH/NECK Hx Radiation Therapy: Yes - MOUTH/NECK - Surgical History Surgery Procedure, Year, and Place: 2005- RADICAL NECK SURG - FOR 2 TUMORS: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 ARTHROSCOPIC - 12/1981; WISDOM TEETH EXTRACTION; - Immunization History Date of Tetanus Vaccine: unk Date of Influenza Vaccine: unk Infectious Disease History: Reports: Hx Shingles Denies: Hx Hepatitis, Hx Human Immunodeficiency Virus (HIV) - Family History Known Family History: Positive: Cardiac Disease, Diabetes - Diabetes Type 2 ( half sister) - Social History Lives: With Family Alcohol Use: None Hx Substance Use: No Substance Use Type: Reports: None Hx Tobacco Use: No Smoking Status (MU): Never Smoked Tobacco Have You Smoked in the Last Year: No Review of Systems - ROS Summary Review of Systems Summary: LVL 5 CAVEAT: Hx and PE is limited due to pt's AMS. Negative: Fever Neurological: Other - AMS, incoherent, difficult to wake All Other Systems Reviewed And Are Negative: No Physical Exam - Summary Physical Exam Summary: Appearance: Ill-appearing. Opens eyes to voice, follow simple commands, hold head down, but can raise it Skin: Cold, Pale HEENT: no sign of trauma, pupils 3mm reactive, PERRL Neck: Supple, no nodes, no JVD. Non tender, post op changes left neck Respiratory: Breaths shallow and rapid but not labored. No wheezes, rales or rhonchi, decreased BS throughout Cardio: Tachycardic, S1 S2 II/ systolic ejection murmur Abd: soft, +BS, nontender, no masses Neuro: Opens eyes to voice, moves all extremities, no focal deficit. LVL 5 CAVEAT: Hx and PE is limited due to pt's nonverbal status. Triage Information Reviewed: Yes Vital Signs On Initial Exam: Initial Vitals Temp Pulse Resp BP Pulse Ox 96.5 F 98 28 95/40 100 10/22/17 10:21 10/22/17 10:21 10/22/17 10:21 10/22/17 10:21 10/22/17 10:21 Vital Signs Reviewed: Yes Completion Of Physical Exam Limited Due To: Level 5 Diagnostics - Laboratory Result Diagrams: 10/23/17 05:56 10/23/17 05:56 Lab Statement: Any lab studies that have been ordered have been reviewed, and results considered in the medical decision making process. Re-Evaluation - Re-Evaluation First Eval Re-Evaluation Time: 10:35 - Pt remains lethargic, present, provides hx of recent pneumonia. sepsis order set and fluids ordered, DKA protocol insulin drip after 10 U IV regular insulin Change: Unchanged Diabetic Course/Dx - Course Assessment/Plan: LVL 5 CAVEAT: Hx and PE is limited due to pt's AMS. This patient is a 66 year old F BIBA accompanied by with a chief complaint of sudden onset AMS since this morning. PMHx Type 1 DM (controlled with insulin shots every day). Vitals upon entering room: BP 99/40,. Temp 96.5 F,. Pulse 100 bpm,. O2 Sat 98. BP 98/50 with fluids wide open. Pending labs. [1125] Dr. Coy is aware of Lactic 2.9. Labs reveal elevated glucose 1018. In the ED course, the patient was given IV fluids, 10 U regular insulin IVP then insulin drip per protocol for DKA, based on elevated glucose 1018, HCO3 less than 7, elevated anion gap, pH on ABG less than 7. Fluids given at 30ml/kg as pt meets SIRS criteria and has suspected site of infection, pneumonia in addition to dx DKA. Pt medications reviewed this visit and include cefuroxime 500 bid. Of note CXR does not show pneumonia. Blood cultures were drawn in ED. Antibiotic administration deferred to Dr Spencer, complicated by pt's multiple allergies. Allergies noted. Dr. Evgeny Spencer (marketing analytics analyst) agrees to admit pt at 1147. CCT 30mins. Pt is stable and will be admited with Dx DKA. - Diagnoses Differential Dx: Diabetic Ketoacidosis, Pneumonia, Sepsis Provider Diagnoses: DKA (diabetic ketoacidoses) - Physician Notifications Discussed Care Of Patient With: Evgeny Spencer - Hot Plate Press Operator Time Discussed With Above Provider: 11:47 Instructed by Provider To: Admit As Inpatient - Critical Care Time Critical Care Time: 30-74 min - 30 mins Discharge - Discharge Plan Condition: Stable Disposition: ADMITTED TO [facility] The documentation as recorded by the Tessa calloway Nilda accurately reflects the service I personally performed and the decisions made by Zbigniew patterson Barbara J, MD.
[2017-10-22] MEDS ORDERED: Insulin REGULAR(*) 100 UNITS in NS 0.9% 100 ML* 100 ML IVPB SCH ×2 (14:00→17:00)
[2017-10-22] MEDS ORDERED: Ketorolac INJ* 30 MG/ML 1 ML VIAL ONE (14:07)
[2017-10-22] MEDS: Ketorolac INJ* 30 MG/ML 1 ML VIAL IV PUSH PRN ×2 (14:10→20:38)
[2017-10-22 14:31] LABS: Urine Appearance Cloudy; Urine Blood 1+ (Negative); Urine Color Yellow; Urine Ketones 1+ (Negative); Urine Protein 1+(30 mg/dL) (Negative); Urine Specific Gravity 1.023 (1.010-1.030); Urine Urobilinogen Negative (Negative)
[2017-10-22] MEDS ORDERED: LORazepam INJ* 2 MG/ML 1 ML VIAL IV PUSH PRN (15:04)
[2017-10-22 16:34] LABS: EGFR Non-African American 27.1 (>60)
[2017-10-22] MEDS ORDERED: KCL 20 MEQ/100 ML IVPREMIX* 20 MEQ/100 ML BAG IV SCH (17:00)
[2017-10-22] MEDS: KCL 10 MEQ/50 ML IVPREMIX* 10 MEQ/50 ML BAG IV SCH ×4 (17:02→18:50)
[2017-10-22 18:35] LABS: EGFR Non-African American 30.5 (>60)
[2017-10-22] MEDS ORDERED: KCL premix 10MEQ/50 ML x 4 RUNS IV SCH (19:00)
[2017-10-22] MEDS ORDERED: D5W NS 0.9% 40Meq KCL 1000 ML* 1,000 ML IV SCH (20:15)
[2017-10-22 20:23] LABS: EGFR Non-African American 32.5 (>60)
--- NOTE | 2017-10-22 22:01 | HP ---
ADMISSION HISTORY AND PHYSICAL: DATE OF ADMISSION: 10/22/17 REASON FOR ADMISSION: Diabetic ketoacidosis. HISTORY OF PRESENT ILLNESS: This is a 66-year-old white female with insulin- dependent diabetes, on 22 units of Lantus insulin daily at home with supplements of regular insulin given after meals. The patient was found down by her and brought in to the emergency department - labs in the ED showed a glucose of 1018, a bicarb of less than 7, BUN 47, creatinine 1.97, lactate of 2.9. Arterial blood gas revealed pH of less than 7, pCO2 of 12, pO2 165, bicarb was 6.2. Anion gap was 35. Chest x-ray showed no pulmonary infiltrates. The patient was subsequently given a diagnosis of diabetic ketoacidosis and was started on aggressive fluid therapy and intravenous insulin. The patient was admitted to the intensive care unit on insulin drip. PAST MEDICAL HISTORY: Other medical problems include history of head and neck cancer (which required surgery in 2005, without apparent recurrence), and recurrent UTIs. MEDICATIONS: Outpatient meds include: 1. Cefuroxime 500 mg twice daily. 2. Bactrim suspension 20 mL twice daily. 3. Lantus insulin 24 units at bedtime. 4. Advair 2 puffs twice daily. 5. Low dose aspirin (81 mg daily). 6. Fluticasone nasal spray 2 sprays to each naris twice daily. 7. Lispro insulin subcutaneously a.c. as needed. 8. Ultram 100 mg every 8 hours for pain. 9. Furosemide 40 mg daily. 10. Metolazone 2.5 mg daily. 11. Albuterol inhaler 1 puff q.6 hours as needed. 12. Omeprazole 20 mg daily. 13. Singulair 10 mg p.o. at bedtime. 14. Levothyroxine 137 mcg daily. ALLERGIES: There are numerous drug allergies, including MORPHINE, CLARITHROMYCIN, CODEINE, GABAPENTIN, MEPERIDINE, MOXIFLOXACIN, PENICILLIN, POLLEN EXTRACT, DARVON, FLUCONAZOLE, and IODINATED CONTRAST DYE. SOCIAL HISTORY: The patient lives with her and he denies smoking or illicit drug use. REVIEW OF SYSTEMS: Unobtainable. PHYSICAL EXAMINATION GENERAL: The patient was somnolent but arousable, and was oriented when aroused. VITAL SIGNS: Temp 96.9, blood pressure 109/70, pulse rate 100 and regular, respirations 22 per minute, O2 saturation 98% on 3 L nasal cannula. HEENT: There was loss of neck musclulature on the left side (secondary to surgery). LUNGS: Clear to auscultation. CARDIAC: No murmurs or rubs. ABDOMEN: Not distended and bowel sounds were heard. EXTREMITIES: Warm, not cyanotic, and not edematous. NEUROLOGIC: There were no focal deficits. LABORATORY DATA/DIAGNOSTIC STUDIES: Admission laboratory data, as mentioned earlier. IMPRESSION: The patient has diabetic ketoacidosis; but given the extent of the glucose elevation, there is also hyperosmolar contribution to the patient's altered mental status. Management will consist of intravenous fluids and intravenous insulin until blood sugar drops to about 250. Since the patient has a history of recurrent urinary tract infections, we will also culture the urine. The patient's is at the bedside and is aware of the management plan. TIME SPENT: Critical care time 60 minutes. [id number]/[facility] #: [id number] MTDAmelia
[2017-10-22 22:42] LABS: EGFR Non-African American 37.3 (>60)
[2017-10-22] MEDS: LORazepam INJ* 2 MG/ML 1 ML VIAL IV PUSH PRN (22:48)
[2017-10-22] MEDS: D5W 1/2 NS 40 Meq KCL 1000 ML* 1,000 ML IV SCH (23:39)
[2017-10-22] MEDS ORDERED: Dextrose 50% Syringe 50 ML* 25 GM/50 ML SYRINGE IV PUSH PRN (23:50)
[2017-10-23] MEDS: Insulin LISPRO* 1 UNITS UNIT SUBCUT SCH ×6 (00:46→20:24)
[2017-10-23 01:25] LABS: EGFR Non-African American 39.6 (>60)
[2017-10-23 02:40] LABS: EGFR Non-African American 40.3 (>60)
[2017-10-23] MEDS: Ketorolac INJ* 30 MG/ML 1 ML VIAL IV PUSH PRN ×4 (02:59→23:33)
[2017-10-23 05:20] LABS: EGFR Non-African American 41.7 (>60)
[2017-10-23 06:07] LABS: Hematocrit 28 % (35-47); Hemoglobin 8.7 g/dl (12.0-16.0); Mean Corpuscular HGB Conc 32 g/dl (31-36); Mean Corpuscular Hemoglobin 26 pg (27-31); Mean Corpuscular Volume 82 fL (80-97); Mean Platelet Volume 9 um3 (7.4-10.4); Platelet Count 252 10^3/ul (150-450); Red Blood Count 3.36 10^6/ul (4.0-5.4); Red Cell Distribution Width 20 % (10.5-15); White Blood Count 21.2 10^3/ul (3.5-10.8)
[2017-10-23 06:24] LABS: EGFR Non-African American 44.5 (>60)
[2017-10-23] MEDS: D5W 1/2 NS 40 Meq KCL 1000 ML* 1,000 ML IV SCH (06:29)
[2017-10-23] MEDS ORDERED: D5W 1/2 NS 40 Meq KCL 1000 ML* 1,000 ML IV SCH (08:00)
[2017-10-23] MEDS: LORazepam INJ* 2 MG/ML 1 ML VIAL IV PUSH PRN ×2 (08:26→14:42)
[2017-10-23] MEDS: Heparin VIAL(*) 5000 UNITS/ML VIAL (FIVE THOUSAND) SUBCUT SCH ×2 (11:29→22:38)
[2017-10-23] MEDS: Insulin GLARGINE(*) 1 UNITS UNIT SUBCUT SCH (11:29)
[2017-10-23] MEDS ORDERED: Ketorolac INJ* 30 MG/ML 1 ML VIAL IV ONE (15:10)
[2017-10-23] MEDS: Insulin REGULAR(*) 1 UNITS UNIT IV PUSH ONE (15:57)
[2017-10-23] MEDS ORDERED: Insulin REGULAR(*) 1 UNITS UNIT IV PUSH ONE ×2 (16:00→17:27)
--- NOTE | 2017-10-23 16:15 | RAD ---
Indication: Central line placement. Comparison: October 22, 2017 Technique: Upright AP 1525 hours Report: Tip of RIGHT subclavian central venous line is at the level of the RIGHT atrium. Wall a displaced pleural line is not definitively visualized extreme apex of the RIGHT lung appears hyperlucent relative to the LEFT concerning for a small pneumothorax. Negative for cardiomegaly. Prominent ill-defined central pulmonary vasculature increased over the prior exam. Prominent interstitial markings. Asymmetric LEFT basilar airspace consolidation. No pleural effusions evident. IMPRESSION: 1. Suggestion of a small LEFT apical pneumothorax post central line placement. 2. Pulmonary vascular congestion and interstitial edema. 3. Asymmetric alveolar edema versus inflammatory infiltrate at the LEFT lung base. Results discussed with Dr. Spencer 10/23/2017 4:12 PM EST
--- NOTE | 2017-10-23 16:15 | PN ---
Date of Service: 10/23/17 Critical Care Services: DKA has resolved, but we are having difficulty with glycenic control. Most recent glucose is 439 mg/dL on sliding scale insulin coverage. Started Lantus this AM and will cover with IV regular insulin. No evidence of infection so far , although WBC count up to 21k Vital Signs: Temp Pulse Resp BP SpO2 FiO2 99.7 F 98 19 103/47 94 98 Physical Exam: Gen: Opens eyes to command but is otherwise unresponsive. HEENT: Pupils midposition and reactive Lungs: clear Cardiac: reg rhythm Extremities: No cyanosis or edema. There are several areas of excoriation on both legs, greatest on the left leg. There is no active purulence. Fluid Balance (Past 24 Hours): 10/23/17 06:59 Intake Total 4158 Output Total 700 Balance +3458 Weight 131 lb Intake: IV Fluids 3953 D5W 1/2 NS 40 meq KCL 1109 LR 2844 IVPB 205 LR 205 Output: Castano 700 Labs: 10/23/17 00:35 Sodium 147 H Potassium 4.2 Chloride 117 H Carbon Dioxide 24 Anion Gap 6 BUN 39 H Creatinine 1.34 H Glucose 243 H Calcium 8.3 L 10/23/17 02:05 WBC RBC Hgb Hct MCV MCH MCHC RDW Plt Count MPV Sodium 147 H Potassium 4.3 Chloride 117 H Carbon Dioxide 25 Anion Gap 5 BUN 40 H Creatinine 1.32 H Glucose 288 H Calcium 8.2 L Phosphorus Magnesium Total Bilirubin AST ALT Alkaline Phosphatase Total Protein Albumin Globulin Albumin/Globulin Ratio Procalcitonin 10/23/17 04:00 WBC RBC Hgb Hct MCV MCH MCHC RDW Plt Count MPV Sodium 145 Potassium 4.3 Chloride 118 H Carbon Dioxide 19 L Anion Gap 8 BUN 40 H Creatinine 1.28 H Est GFR ( Amer) 53.7 Est GFR (Non-Af Amer) 41.7 BUN/Creatinine Ratio 31.3 H Glucose 313 H POC Glucose (mg/dL) Calcium 8.1 L Phosphorus Magnesium Total Bilirubin AST ALT Alkaline Phosphatase Total Protein Albumin Globulin Albumin/Globulin Ratio Procalcitonin 10/23/17 10/23/17 10/23/17 04:17 04:24 05:56 WBC 21.2 H RBC 3.36 L Hgb 8.7 L Hct 28 L MCV 82 MCH 26 L MCHC 32 RDW 20 H Plt Count 252 MPV 9 Sodium Potassium Chloride Carbon Dioxide Anion Gap BUN Creatinine Est GFR ( Amer) Est GFR (Non-Af Amer) BUN/Creatinine Ratio Glucose POC Glucose (mg/dL) 194 H 355 H Calcium Phosphorus Magnesium Total Bilirubin AST ALT Alkaline Phosphatase Total Protein Albumin Globulin Albumin/Globulin Ratio Procalcitonin 10/23/17 10/23/17 10/23/17 05:56 05:56 07:48 WBC RBC Hgb Hct MCV MCH MCHC RDW Plt Count MPV Sodium 146 H Potassium 4.2 Chloride 118 H Carbon Dioxide 24 Anion Gap 4 BUN 37 H Creatinine 1.21 H Est GFR ( Amer) 57.3 Est GFR (Non-Af Amer) 44.5 BUN/Creatinine Ratio 30.6 H Glucose 335 H POC Glucose (mg/dL) 355 H 390 H Calcium 7.8 L Phosphorus 1.6 L Magnesium 1.8 L Total Bilirubin 0.40 AST 16 ALT 9 Alkaline Phosphatase 83 Total Protein 4.9 L Albumin 2.5 L Globulin 2.4 Albumin/Globulin Ratio 1.0 Procalcitonin 10/23/17 14:05 WBC RBC Hgb Hct MCV MCH MCHC RDW Plt Count MPV Sodium Potassium Chloride Carbon Dioxide Anion Gap BUN Creatinine Est GFR ( Amer) Est GFR (Non-Af Amer) BUN/Creatinine Ratio Glucose 439 H POC Glucose (mg/dL) Calcium Phosphorus Magnesium Total Bilirubin AST ALT Alkaline Phosphatase Total Protein Albumin Globulin Albumin/Globulin Ratio Procalcitonin Studies: CXR post insertion of subclavian vein catheter shows ? small apical right pneumothorax. Nutrition: NPO Impression: 1. DKA has resolved but glycemic control is poor. 2. No evidence of infection, despite leukocytosis. However, I am concerned about the skin lesions on both legs. 3. ? Apical pneumo after subclavian vein catheterization Plan: 1. Use regular insulin IV to attain glycemic control. 2. Will start empiric antibiotic Rx for the skin lesions 3. Follow possible pneumothorax with serial CXRs Critical Care Time: 50 minutes
[2017-10-23] MEDS: POTASSIUM CHLORIDE IVPB SCH ×2 (17:18)
[2017-10-23] MEDS: LACTATED RINGERS IVPB SCH ×2 (17:18)
[2017-10-23] MEDS: Cefepime 1 GM in Dextrose(*) 1 GM/50 ML BAG IV SCH (17:40)
--- NOTE | 2017-10-23 17:54 | PN ---
Progress Note - Progress Note Date of Service: 10/23/17 Note: Repeat CX shows apical pneumothorax after insertion of subclavian vein catheter. Film also shows probable pneumonia involving the left lung base. Plan - 1) Start cefepime for pneumonia, 2) serial CXRs for the pneumothorax.
[2017-10-23] MEDS ORDERED: Insulin REGULAR(*) 1 UNITS UNIT ONE (17:57)
[2017-10-23] MEDS: Levothyroxine INJ* 100 MCG/5 ML VIAL IV SCH (18:17)
--- NOTE | 2017-10-23 21:39 | RAD ---
Indication: Follow-up pneumothorax. Single frontal view of the chest performed at 2111 hours was reviewed. Comparison is made with previous exam dated October 23, 2017. No mediastinal shift is noted. Heart is of normal size. Left-sided airspace disease consistent with pneumonia is noted. Right lung field is clear. There is a right-sided pneumothorax noted. This is unchanged from exam done earlier the same day. IMPRESSION: RIGHT-SIDED PNEUMOTHORAX. NO SIGNIFICANT CHANGE IS NOTED SINCE PREVIOUS EXAM.
--- NOTE | 2017-10-23 21:40 | RAD ---
Indication: Right pneumothorax. Single frontal view of the chest performed at 1650 hours was reviewed. Comparison is made with previous exam dated earlier the same day. No mediastinal shift is noted. Heart is of normal size and configuration. Small right pneumothorax remains unchanged from previous exam. Left perihilar infiltrates are noted.. IMPRESSION: RIGHT PNEUMOTHORAX PERSISTS.
[2017-10-24] MEDS: Insulin LISPRO* 1 UNITS UNIT SUBCUT SCH ×6 (00:35→21:10)
[2017-10-24] MEDS: LACTATED RINGERS IVPB SCH ×4 (02:06→10:53)
[2017-10-24] MEDS: POTASSIUM CHLORIDE IVPB SCH ×4 (02:06→10:53)
--- NOTE | 2017-10-24 04:50 | PRO ---
PROCEDURE NOTE: DATE OF PROCEDURE: 10/23/17 - ROOM #ICU-02 PROCEDURE: Insertion of a central venous catheter. DESCRIPTION OF PROCEDURE: This patient is a 66-year-old female that was admitted with diabetic ketoacidosis and because of difficulty with venous access , a central line was deemed necessary. A 7-Uzbek triple lumen catheter was inserted in the right subclavian vein using an infraclavicular approach. The catheter insertion was without apparent complications and a post insertion chest x-ray has been ordered. [id number]/[facility] [place]: [id number] [facility]
[2017-10-24] MEDS: Levothyroxine INJ* 100 MCG/5 ML VIAL IV SCH (05:13)
[2017-10-24 05:48] LABS: Hematocrit 27 % (35-47); Hemoglobin 8.3 g/dl (12.0-16.0); Mean Corpuscular HGB Conc 30 g/dl (31-36); Mean Corpuscular Hemoglobin 25 pg (27-31); Mean Corpuscular Volume 83 fL (80-97); Mean Platelet Volume 9 um3 (7.4-10.4); Platelet Count 181 10^3/ul (150-450); Red Blood Count 3.29 10^6/ul (4.0-5.4); Red Cell Distribution Width 20 % (10.5-15); White Blood Count 12.2 10^3/ul (3.5-10.8)
[2017-10-24 05:59] LABS: EGFR Non-African American 85.1 (>60)
--- NOTE | 2017-10-24 07:46 | RAD ---
INDICATION: Pneumothorax. COMPARISON: Comparison is made with prior study from one day earlier. TECHNIQUE: A portable view of the chest was obtained. FINDINGS: The heart is within normal limits in size. There is a central venous catheter present on the right side. The catheter tip projects over the region of the right atrium and inferior vena cava and appears unchanged. There is lucency at the right lung apex consistent with a right apical pneumothorax. This is better defined on the prior study and appears grossly unchanged. There is an infiltrate in the mid and lower left lung field most consistent with pneumonia which appears unchanged. IMPRESSION: 1. SMALL RIGHT APICAL PNEUMOTHORAX, UNCHANGED. 2. LEFT LUNG INFILTRATE MOST CONSISTENT WITH PNEUMONIA, UNCHANGED.
[2017-10-24] MEDS ORDERED: Famotidine IV * 20 MG in NS 0.9% 100 ML* 100 ML IVPB SCH (09:00)
[2017-10-24] MEDS: Famotidine IV* 10 MG/ML 2 ML (20 mg) IV SLOW PU SCH (09:09)
[2017-10-24] MEDS: Heparin VIAL(*) 5000 UNITS/ML VIAL (FIVE THOUSAND) SUBCUT SCH ×2 (09:09→22:35)
[2017-10-24] MEDS: Insulin GLARGINE(*) 1 UNITS UNIT SUBCUT SCH (10:22)
[2017-10-24] MEDS: Ketorolac INJ* 30 MG/ML 1 ML VIAL IV PUSH PRN ×2 (12:01→23:28)
--- NOTE | 2017-10-24 14:03 | PN ---
Date of Service: 10/24/17 Critical Care Services: Blood sugars coming under control, but patient now has a progressive pneumonia involving the left lung. Has been started on cefipime (is PCN-allergic). Vital Signs: Temp Pulse Resp BP SpO2 FiO2 100.0 F 97 32 135/79 91 98 Physical Exam: Gen: Arousable but confused. HEENT: Copiuos secretions from OP Lungs: Coarse crackles on left side Extremities:no cyanosis or edema. Skin lesions with occlusive dressings. Fluid Balance (Past 24 Hours): 10/24/17 06:59 Intake Total 2532 Output Total 625 Balance 1907 Weight 134 lb Intake: IV Fluids 2465 ABX - CEFEPIME 60 D5W 1/2 NS 40 meq KCL 1098 LR 1307 IVPB 67 ABX - CEFEPIME 67 LR Output: Castano 625 Other: Date of Last Bowel 10/23/17 Movement # Bowel Movements 1 Estimated Stool Amount Medium NOTE: Patient is about 6 liters positive over past few days. Labs: 10/24/17 10/24/17 10/24/17 02:14 04:57 05:30 Sodium 148 H Potassium 5.1 H Chloride 121 H Carbon Dioxide 23 Anion Gap 4 BUN 31 H Creatinine 0.69 BUN/Creatinine Ratio 44.9 H Glucose 178 H POC Glucose (mg/dL) 180 H 179 H Calcium 7.9 L Phosphorus 1.8 L 10/24/17 10/24/17 10/24/17 05:30 08:34 12:43 WBC 12.2 H RBC 3.29 L Hgb 8.3 L Hct 27 L MCV 83 MCH 25 L MCHC 30 L RDW 20 H Plt Count 181 POC Glucose (mg/dL) 178 H 133 H 10/24/17 13:10 ABG pH 7.46 H ABG pCO2 35 ABG pO2 49 ABG HCO3 25.7 ABG O2 Saturation 91.7 L Studies: CXR - Progressive infiltration of left lung. Right apical pneumo unchanged. Nutrition: None Impression: Glycemic control better but other problems include altered mental status and pneumonia from retained secretions. Also, patient is unable to eat at this point. Right-sided pneumothorax appears to be stable. Plan: 1. Vigorous OP suctioning to clear secretions. Intubation is a consideration if problems clearing secretions persists. 2. Continue cefipime pending culture results 3. Feeding tube if inability to eat continiues. 4. Serial CXRs to follow pneumothorax. present at bedside and informed of current condition. Critical Care Time: 45 minutes
[2017-10-24] MEDS: LORazepam INJ* 2 MG/ML 1 ML VIAL IV PUSH PRN (15:36)
[2017-10-24] MEDS: Cefepime 1 GM in Dextrose(*) 1 GM/50 ML BAG IV SCH (17:57)
[2017-10-24] MEDS: D5LR 1000 ML BAG* 1,000 ML IV SCH (18:05)
[2017-10-25] MEDS: Insulin LISPRO* 1 UNITS UNIT SUBCUT SCH ×6 (00:29→20:28)
[2017-10-25] MEDS: Ketorolac INJ* 30 MG/ML 1 ML VIAL IV PUSH PRN ×2 (05:15→20:29)
[2017-10-25] MEDS: Levothyroxine INJ* 100 MCG/5 ML VIAL IV SCH (06:11)
[2017-10-25 06:50] LABS: Hematocrit 24 % (35-47); Hemoglobin 7.5 g/dl (12.0-16.0); Mean Corpuscular HGB Conc 31 g/dl (31-36); Mean Corpuscular Hemoglobin 26 pg (27-31); Mean Corpuscular Volume 82 fL (80-97); Mean Platelet Volume 9 um3 (7.4-10.4); Platelet Count 112 10^3/ul (150-450); Red Blood Count 2.89 10^6/ul (4.0-5.4); Red Cell Distribution Width 20 % (10.5-15); White Blood Count 6.6 10^3/ul (3.5-10.8)
[2017-10-25 07:08] LABS: EGFR Non-African American 108.3 (>60)
[2017-10-25] MEDS: D5LR 1000 ML BAG* 1,000 ML IV SCH ×2 (07:13→16:46)
--- NOTE | 2017-10-25 07:57 | RAD ---
Indication: Follow-up RIGHT apical pneumothorax and LEFT-sided pneumonia. Comparison: October 24, 2017 Technique: Upright AP 0600 hours Report: Persistent small RIGHT apical pneumothorax with the pleural line visible at the fourth posterior intercostal space without significant change. Negative for mediastinal shift. Worsening of airspace consolidation of the LEFT lung with sparing of the apex. New patchy alveolar consolidation at the RIGHT lung concerning for pneumonia given absence of change in volume loss attributed to the pneumothorax. Moderate LEFT and small RIGHT pleural effusions likely. Negative for cardiomegaly. Unremarkable central pulmonary vasculature. Tip of RIGHT subclavian central venous catheter at level of the RIGHT atrium. IMPRESSION: 1. No significant change in small RIGHT apical pneumothorax. Negative for mediastinal shift. 2. Worsening of LEFT greater than light pulmonary infiltrates. 3. Moderate LEFT and small RIGHT pleural effusions likely.
[2017-10-25] MEDS: Heparin VIAL(*) 5000 UNITS/ML VIAL (FIVE THOUSAND) SUBCUT SCH ×2 (09:29→20:29)
[2017-10-25] MEDS: Famotidine IV* 10 MG/ML 2 ML (20 mg) IV SLOW PU SCH (09:30)
[2017-10-25] MEDS: Insulin GLARGINE(*) 1 UNITS UNIT SUBCUT SCH (09:46)
[2017-10-25] MEDS ORDERED: Acetaminophen TAB* 325 MG ONE (14:38)
--- NOTE | 2017-10-25 15:45 | RAD ---
HISTORY: Hypoglycemia COMPARISONS: October 25, 2017, October 24, 2014, October 23, 2017, October 12, 2017, September 24, 2017 VIEWS: 1: frontal portable view of the chest at 3:08 PM FINDINGS: LINES AND TUBES: A central venous catheter is noted from a right subclavian approach with the tip overlying the right atrium. CARDIOMEDIASTINAL SILHOUETTE: The henrietta cell silhouette is partially obscured but is stable. PLEURA: There is stable small right apical pneumothorax. There is a small left pleural effusion. LUNG PARENCHYMA: There is persistent confluent alveolar opacification of the left mid and lower lung montejo. There is patchy alveolar opacification of the right lung base. ABDOMEN: The upper abdomen is clear. There is no subphrenic gas. BONES AND SOFT TISSUES: There is a proximal left humeral fracture that appears chronic IMPRESSION: 1. LINES AND TUBES ABOVE. 2. PERSISTENT CONSOLIDATION OF THE LEFT MID AND LOWER LUNG FIELD WITH PATCHY AIRSPACE DISEASE OF THE RIGHT LOWER LUNG FIELD. 3. LEFT PLEURAL EFFUSION. 4. STABLE SMALL RIGHT APICAL PNEUMOTHORAX
--- NOTE | 2017-10-25 16:39 | PN ---
Date of Service: 10/25/17 Critical Care Services: Patient is slightly stronger today but still has problems with clearing secretions, and CXR showed progressive opacvification and volume loss at left lung base - CXR shows some improvement after agressive chest PT. Vital Signs: Temp Pulse Resp BP SpO2 FiO2 101.1 F 102 29 100/53 97 60 NOTE: On cefepime for pneumonia Physical Exam: Gen:Awake and responds appropristely to verbal commands. HEENT: OP clear Lungs: coarse rhonchi left side. Extremities: No cyanosis Fluid Balance (Past 24 Hours): 10/25/17 06:59 Intake Total 3089 Output Total 1625 Balance +1464 Weight 131 lb Intake: IV Fluids 2920 ABX - CEFEPIME 60 D5W 1/2 NS 40 meq KCL LR LR with 20meq K 2860 IVPB 169 ABX - CEFEPIME 54 LR LR with 20meq K 115 Oral 0 Output: Castano 1625 Other: Date of Last Bowel Movement # Bowel Movements Estimated Stool Amount NOTE: Cut back IVs to 50 cc/hr Labs: 10/25/17 10/25/17 04:37 06:25 WBC RBC Hgb Hct MCV MCH MCHC RDW Plt Count MPV Sodium 148 Potassium 3.8 Chloride 120 Carbon Dioxide 26 BUN 21 Creatinine 0.56 Glucose 172 H POC Glucose (mg/dL) 208 H Calcium 7.5 L 10/25/17 10/25/17 10/25/17 06:25 09:26 13:12 WBC 6.6 Hgb 7.5 Hct 24 Plt Count 112 Sodium Potassium Chloride Carbon Dioxide Anion Gap BUN Creatinine Est GFR ( Amer) Est GFR (Non-Af Amer) BUN/Creatinine Ratio Glucose POC Glucose (mg/dL) 251 H 91 Calcium Nutrition: Started on oral diet (pureed foods) Impression: Slowly improving in terms of glycemic control and mental status, but still has problems clearing secretions and, as a result, has a pneumonia at the left base. Plan: 1. Agressive chest PT 2. Bronchoscopy if above ineffective. 3. Advance diet as tolerated. Critical Care Time: 45 minutes
[2017-10-25] MEDS: Cefepime 1 GM in Dextrose(*) 1 GM/50 ML BAG IV SCH (18:21)
[2017-10-25] MEDS ORDERED: Acetaminophen TAB* 325 MG PO PRN (22:12)
[2017-10-25] MEDS: POTASSIUM CHLORIDE IVPB SCH ×2 (22:34)
[2017-10-25] MEDS: LACTATED RINGERS IVPB SCH ×2 (22:34)
[2017-10-26] MEDS: Insulin LISPRO* 1 UNITS UNIT SUBCUT SCH ×7 (00:24→23:37)
[2017-10-26] MEDS: Ketorolac INJ* 30 MG/ML 1 ML VIAL IV PUSH PRN ×2 (03:14→19:42)
[2017-10-26] MEDS: D5LR 1000 ML BAG* 1,000 ML IV SCH (04:48)
[2017-10-26] MEDS: Levothyroxine INJ* 100 MCG/5 ML VIAL IV SCH (06:20)
[2017-10-26] MEDS: Acetaminophen SUPP* 650 MG SUPP PR PRN ×2 (06:30→19:28)
[2017-10-26 06:36] LABS: Hematocrit 20 % (35-47); Hemoglobin 6.4 g/dl (12.0-16.0); Mean Corpuscular HGB Conc 32 g/dl (31-36); Mean Corpuscular Hemoglobin 26 pg (27-31); Mean Corpuscular Volume 83 fL (80-97); Mean Platelet Volume 9 um3 (7.4-10.4); Platelet Count 93 10^3/ul (150-450); Red Blood Count 2.44 10^6/ul (4.0-5.4); Red Cell Distribution Width 20 % (10.5-15); White Blood Count 4.9 10^3/ul (3.5-10.8)
[2017-10-26 06:49] LABS: EGFR Non-African American 106.1 (>60)
--- NOTE | 2017-10-26 08:02 | RAD ---
HISTORY: Pneumonia and pneumothorax COMPARISONS: October 25, 2017 VIEWS: 1: frontal portable view of the chest at 6:10 AM FINDINGS: LINES AND TUBES: A central venous catheter is noted from a right cephalic approach. The tip overlies the right atrium. CARDIOMEDIASTINAL SILHOUETTE: The cardiomediastinal silhouette is stable. PLEURA: Again noted is a small right apical pneumothorax. There is a small to moderate left pleural effusion. LUNG PARENCHYMA: There is persistent confluent alveolar opacification of the left mid and lower lung montejo and to lesser extent of the right lower lung field. ABDOMEN: The upper abdomen is clear. There is no subphrenic gas. BONES AND SOFT TISSUES: No bone or soft tissue abnormalities are noted. IMPRESSION: 1. LINES AND TUBES ABOVE. 2. STABLE RIGHT APICAL PNEUMOTHORAX. 3. STABLE LEFT PLEURAL EFFUSION. 4. PERSISTENT CONSOLIDATION OF THE LEFT MID AND LOWER LUNG WITH PATCHY AIRSPACE DISEASE OF THE RIGHT LOWER LUNG
[2017-10-26] MEDS: KCL premix 10 MEQ/50 ML IVPREMIX x 4 RUNS IV SCH ×4 (08:04→10:36)
[2017-10-26] MEDS: Famotidine IV* 10 MG/ML 2 ML (20 mg) IV SLOW PU SCH (08:05)
[2017-10-26] MEDS: Heparin VIAL(*) 5000 UNITS/ML VIAL (FIVE THOUSAND) SUBCUT SCH (08:05)
[2017-10-26] MEDS ORDERED: LORazepam INJ* 2 MG/ML 1 ML VIAL ONE (08:31)
[2017-10-26] MEDS ORDERED: Acetylcysteine INHALATION SOL* 200 MG/ML NEB.SOLN 10 ML ONE (08:34)
[2017-10-26] MEDS ORDERED: Lidocaine 2% JELLY* 6 ML JELLY TOPICAL ONE (09:00)
[2017-10-26] MEDS: Insulin GLARGINE(*) 1 UNITS UNIT SUBCUT SCH (10:36)
--- NOTE | 2017-10-26 11:34 | RAD ---
INDICATION: Post bronchoscopy film. COMPARISON: Comparison is made with a prior study from October 26, 2017. TECHNIQUE: A portable view of the chest was obtained. FINDINGS: The heart is obscured by dense infiltrate in the left lung. There is a dense infiltrate present throughout the left lung with sparing of the left lung apex which is unchanged. There are also infiltrates in the right upper lobe and at the right lung base which have progressed slightly. There is a small apical right pneumothorax which is unchanged. IMPRESSION: 1. BILATERAL INFILTRATES LEFT GREATER THAN RIGHT DEMONSTRATING SLIGHT PROGRESSION ON THE RIGHT SIDE. 2. SMALL RIGHT APICAL PNEUMOTHORAX, UNCHANGED.
--- NOTE | 2017-10-26 17:04 | PN ---
Date of Service: 10/26/17 Critical Care Services: CXR this AM showed complete opacification of left hemothorax, so bronchoscopy was performed at the bedside. Copious amount of mucoid secretions aspirated from the left lung and airways clear to 4th order bronchi by end of procedure. Also received one unit of RBCs because of Hb below 7.0 (slow decline - no evidence of bleeding). Glycemic control no longer problematic. Vital Signs: Temp Pulse Resp BP SpO2 FiO2 100.9 F 88 38 113/80 95 60 Physical Exam: Gen:Somnolent HEENT:OP clear Lungs: occasional rhonchi left side. No wheezing Extremities: No cyanosis or edema. Fluid Balance (Past 24 Hours): 10/26/17 06:59 Intake Total 1403 Output Total 1225 Balance +178 Weight 138 lb Intake: IV Fluids 1293 ABX - CEFEPIME D5W 1/2 NS 40 meq KCL D5W LR 942 LR LR with 20meq K 351 ns IVPB 50 ABX - CEFEPIME 50 LR with 20meq K Medicated IV kcl Oral 60 Packed Cells Output: Castano 1225 Other: Date of Last Bowel Movement # Bowel Movements 1 Estimated Stool Amount Small Labs: 10/26/17 10/26/17 10/26/17 00:18 04:07 06:09 WBC RBC Hgb Hct MCV MCH MCHC RDW Plt Count MPV Sodium 148 H Potassium 2.9 L Chloride 119 H Carbon Dioxide 24 Anion Gap 5 BUN 17 Creatinine 0.57 Est GFR ( Amer) 136.5 Est GFR (Non-Af Amer) 106.1 BUN/Creatinine Ratio 29.8 H Glucose 197 H POC Glucose (mg/dL) 268 H 263 H Calcium 7.1 L Blood Type Antibody Screen Crossmatch 10/26/17 06:09 WBC 4.9 RBC 2.44 L Hgb 6.4 Hct 20 L MCV 83 MCH 26 L MCHC 32 RDW 20 H Plt Count 93 MPV 9 Nutrition: Oral diet (intake poor) Impression: 1. Major problem now is retained secretions with pneumonia left lung. Patient is weak, and has ineffective cough. 2. Thrombocytopenia - Likely causes are sepsis and heparin (latter less likely). 3. ICU-acquired anemia This patrients overall clinical condition is poor, and the prognosis for recovery is guarded. Plan: 1. D/C heparin and use SCDs for DVT prophylaxis. 2. Repeat CXR and bronchoscopy as needed. 3. Insert feeding tube if oral intake continues to be poor. Patient's is aware of the patient's condition and our concerns about the prognosis.
[2017-10-26 17:27] LABS: Hematocrit 27 % (35-47); Hemoglobin 8.5 g/dl (12.0-16.0)
[2017-10-26] MEDS: Cefepime 1 GM in Dextrose(*) 1 GM/50 ML BAG IV SCH (17:46)
[2017-10-27] MEDS: Ketorolac INJ* 30 MG/ML 1 ML VIAL IV PUSH PRN ×3 (01:47→21:40)
[2017-10-27] MEDS ORDERED: Propofol* 100 ML ONE (02:16)
[2017-10-27] MEDS ORDERED: Succinylcholine* 20 MG/ML 10 ML VIAL ONE (02:17)
[2017-10-27] MEDS ORDERED: KETAMINE HCL* 50 MG/ML 10 ML VIAL ONE (02:25)
[2017-10-27] MEDS ORDERED: Propofol* 10 MG/ML 20 ML BTL IV PUSH ONE (02:25)
--- NOTE | 2017-10-27 02:40 | PN ---
Progress Note - Progress Note Date of Service: 10/27/17 Note: Procedure note: Endotracheal intubation Patient increased to maximum vapotherm but remained with increased work of breathing, using accessory muscles of respiration With direct assistance of ED physician Dr. Marcelino Pt received 75mg propofol, 75mg ketamine and 120mg succinylcholine Glidescope assisted ET intubation with 7.5 ET tube No complications CXR orded to confirm placement.
[2017-10-27] MEDS: Propofol* 100 ML IV SCH ×3 (02:45→22:24)
[2017-10-27] MEDS: D5LR 1000 ML BAG* 1,000 ML IV SCH ×2 (03:02→23:03)
[2017-10-27] MEDS: Levothyroxine INJ* 100 MCG/5 ML VIAL IV SCH (05:42)
[2017-10-27 06:15] LABS: Hematocrit 27 % (35-47); Hemoglobin 8.4 g/dl (12.0-16.0); Mean Corpuscular HGB Conc 32 g/dl (31-36); Mean Corpuscular Hemoglobin 26 pg (27-31); Mean Corpuscular Volume 84 fL (80-97); Mean Platelet Volume 10 um3 (7.4-10.4); Platelet Count 114 10^3/ul (150-450); Red Blood Count 3.19 10^6/ul (4.0-5.4); Red Cell Distribution Width 20 % (10.5-15); White Blood Count 8.1 10^3/ul (3.5-10.8)
[2017-10-27] MEDS: Insulin LISPRO* 1 UNITS UNIT SUBCUT SCH ×3 (06:33→18:04)
[2017-10-27] MEDS: Acetaminophen SUPP* 650 MG SUPP PR PRN (08:05)
--- NOTE | 2017-10-27 08:17 | RAD ---
HISTORY: Line placement COMPARISONS: October 26, 2017 VIEWS: 1: frontal portable view of the chest at 2:45 AM FINDINGS: LINES AND TUBES: An endotracheal tube is noted with the tip overlying the trachea at the level of the henrietta. A gastric tube is noted. The tip is below the [id number] of the current examination, but is below the diaphragm. A right-sided subclavian venous catheter is noted with the tip overlying T2 vertebral junction. CARDIOMEDIASTINAL SILHOUETTE: The cardiomediastinal silhouette is normal for portable technique. PLEURA: The costophrenic angles are sharp. No pleural abnormalities are noted. LUNG PARENCHYMA: There is diffuse opacification throughout both lung montejo, progressed on the right from the previous examination. ABDOMEN: The upper abdomen is clear. There is no subphrenic gas. BONES AND SOFT TISSUES: Again noted is a chronic left proximal humerus fracture. IMPRESSION: 1. LINES AND TUBES ABOVE. 2. DIFFUSE AIRSPACE DISEASE THROUGHOUT BOTH LUNGS, PROGRESSED FROM THE OCTOBER 26, 2017 EXAMINATION
--- NOTE | 2017-10-27 08:22 | RAD ---
HISTORY: Atelectasis of left lung from retained secretions COMPARISONS: October 27, 2017 at 2:58 AM VIEWS: 1: frontal portable view of the chest at 5:59 AM FINDINGS: LINES AND TUBES: An endotracheal tube is noted with the tip overlying the trachea between the clavicles and the henrietta. A gastric tube is noted. The tip is below the [id number] of the current examination, but is below the diaphragm. A subclavian venous catheter is noted with the tip overlying the right atrium. CARDIOMEDIASTINAL SILHOUETTE: The cardiomediastinal silhouette is normal for portable technique. PLEURA: The costophrenic angles are sharp. No pleural abnormalities are noted. LUNG PARENCHYMA: There is diffuse alveolar opacities throughout both lungs, similar to the October 27, 2017 examination at 2:58 AM. ABDOMEN: The upper abdomen is clear. There is no subphrenic gas. BONES AND SOFT TISSUES: Again noted is a chronic left humeral fracture. IMPRESSION: 1. LINE AND TUBES ABOVE. 2. AGAIN NOTED IS DIFFUSE CONSOLIDATION THROUGHOUT BOTH LUNGS.
[2017-10-27] MEDS: Famotidine IV* 10 MG/ML 2 ML (20 mg) IV SLOW PU SCH (08:52)
[2017-10-27] MEDS: Chlorhexidine MOUTHWASH 0.12%* 15 ML UDC TOPICAL SCH ×4 (09:39→20:16)
[2017-10-27] MEDS: Insulin GLARGINE(*) 1 UNITS UNIT SUBCUT SCH (10:02)
--- NOTE | 2017-10-27 13:20 | PN ---
Critical Care Services: Intubated last night and this AM CXR shows extensive infiltration in both lungs , resembling ARDS. Is on cefepime for hospital-acquired pneumonia. Vital Signs: Temp Pulse Resp BP SpO2 FiO2 101.7 F 81 27 122/49 100 80 Physical Exam: Gen:Unresponsive (on Propofol) Lungs:Fine end-inspiratory crackles on both sides. Extremities: No cyanosis or edema Fluid Balance (Past 24 Hours): 10/27/17 06:59 Intake Total 1707 Output Total 625 Balance +1082 Weight 136 lb Intake: IV Fluids 1122 ABX - CEFEPIME D5W LR 1072 LR with 20meq K ns 50 IVPB ABX - CEFEPIME LR with 20meq K Medicated IV 285 CC - Propofol/Diprivan 38 kcl 247 Oral 0 Packed Cells 300 Output: Castano 625 Other: # Bowel Movements 1 Estimated Stool Amount Small Labs: 10/27/17 05:25 Sodium 147 Potassium 4.1 Chloride 119 Carbon Dioxide 23 BUN 19 Creatinine 0.59 Glucose 228 H Calcium 7.2 L 10/27/17 05:25 WBC 8.1 Hgb 8.4 Hct 27 Plt Count 114 Studies: CXR: Diffuse infiltration on both sides. Nutrition: Tube feedings - Glucerna at 50 cc/hr. Impression: Most likely cause of the diffuse infiltrative disease is aspiration, but pulmonary O2 toxicity cannot be ruled out. Received a blood transfusion yeaterday, but in review of serial CXRs, this was developing prior to the transfusion. Doubt a bacterial cause, as this is a very atypical pattern for hospital-acquired pneumonia. Plan: 1. Continue cefepime, and culture the tracheal aspirate (respiratory secretions are minimal). 2. Try to maintain a negative fluid balance. Prognosis poor (as stated in prior notes). Critical Care Time: 50 minutes
[2017-10-27] MEDS: Cefepime 1 GM in Dextrose(*) 1 GM/50 ML BAG IV SCH (17:42)
[2017-10-27] MEDS: LORazepam INJ* 2 MG/ML 1 ML VIAL IV PUSH PRN (18:46)
[2017-10-27] MEDS: fentaNYL* 50 MCG/ML 2 ML VIAL (100 MCG VIAL) IV SLOW PU PRN (21:39)
[2017-10-28] MEDS: Insulin LISPRO* 1 UNITS UNIT SUBCUT SCH ×5 (00:27→23:40)
[2017-10-28] MEDS: Chlorhexidine MOUTHWASH 0.12%* 15 ML UDC TOPICAL SCH ×6 (00:28→21:58)
[2017-10-28 05:28] LABS: Hematocrit 26 % (35-47); Hemoglobin 8.2 g/dl (12.0-16.0); Mean Corpuscular HGB Conc 32 g/dl (31-36); Mean Corpuscular Hemoglobin 27 pg (27-31); Mean Corpuscular Volume 83 fL (80-97); Mean Platelet Volume 10 um3 (7.4-10.4); Platelet Count 126 10^3/ul (150-450); Red Cell Distribution Width 20 % (10.5-15); White Blood Count 7.6 10^3/ul (3.5-10.8)
[2017-10-28] MEDS: Levothyroxine INJ* 100 MCG/5 ML VIAL IV SCH (06:29)
--- NOTE | 2017-10-28 07:27 | RAD ---
INDICATION: ARDS COMPARISON: October 27, 2017 TECHNIQUE: An AP portable view obtained at 0610 hours is submitted. FINDINGS: Bones/Soft Tissues: There are no acute bony findings. There is an endotracheal tube 1 cm above the henrietta. There is a right subclavian catheter. Nasogastric tube passes normally through the mediastinum Cardiomediastinal: Cardiac silhouette is unchanged and partially obscured by adjacent pulmonary parenchymal disease.. Lungs: Diffuse bilateral alveolar infiltrates with progression consolidation. Pleura: There are no pleural effusions. Other: None IMPRESSION: PROGRESSIVE BILATERAL ALVEOLAR INFILTRATES
--- NOTE | 2017-10-28 07:41 | RAD ---
INDICATION: Endotracheal tube placement COMPARISON: October 27, 2017 TECHNIQUE: An AP portable view obtained at 2350 hours is submitted. FINDINGS: Bones/Soft Tissues: There are no acute bony findings. There is an endotracheal tube near the henrietta. There is a right subclavian catheter. Chest leads project over the thorax. A nasogastric tube is in the distal stomach Cardiomediastinal: The heart is normal in size. Lungs: There are bilateral interstitial and alveolar infiltrates, unchanged. Pleura: Suspect small bilateral effusions. Other: None IMPRESSION: BILATERAL INTERSTITIAL AND ALVEOLAR INFILTRATES PERHAPS WITH MINOR IMPROVEMENT.
[2017-10-28] MEDS: Famotidine IV* 10 MG/ML 2 ML (20 mg) IV SLOW PU SCH (08:47)
[2017-10-28] MEDS: Propofol* 100 ML IV SCH ×3 (08:47→23:40)
[2017-10-28] MEDS ORDERED: Insulin REGULAR(*) 1 UNITS UNIT ONE (09:45)
[2017-10-28] MEDS: Insulin GLARGINE(*) 1 UNITS UNIT SUBCUT SCH (09:47)
[2017-10-28] MEDS ORDERED: Insulin REGULAR(*) 1 UNITS UNIT IV PUSH ONE (09:48)
[2017-10-28] MEDS: fentaNYL* 50 MCG/ML 2 ML VIAL (100 MCG VIAL) IV SLOW PU PRN (10:16)
[2017-10-28] MEDS ORDERED: Insulin REGULAR IVPB 100 UNITS/100 ML UNIT IVPB SCH (12:00)
--- NOTE | 2017-10-28 15:33 | PN ---
Critical Care Services: Clinical condition has worsened overnight, with CXR now showing almost complete whiteout of both lungs, and BP declining. Glycemic control has also become problematic, and patient is now on an insulin drip. Patient's and daughter visited today and were informed of the deteriorating clinical condition - The (healthcare proxy) signed a DNR order. Vital Signs: Temp Pulse Resp BP SpO2 FiO2 100.0 F 105 14 87/50 95 50 NOTE: On mechanical ventilation with APRV. Physical Exam: Gen:Unresponsive (on propofol) Lungs:Fine end-inspiratory crackles on both sides. Extremities:No cyanosis or edema. Occlusive dressing on leg ulcers. Skin: Pale Fluid Balance (Past 24 Hours): 10/28/17 06:59 Intake Total 2450 Output Total 360 Balance +2090 Weight 143 lb Intake: IV Fluids 1334 D5W LR 1215 LR with 20meq K ns 119 IVPB 60 ABX - CEFEPIME LR ns 60 Medicated IV 183 CC - Propofol/Diprivan 183 kcl Oral Tube Feeding 873 Packed Cells Output: Castano 360 Other: Date of Last Bowel 10/27/17 Movement # Bowel Movements 2 Estimated Stool Amount Small NOTE: Unable to diurese because of low BP. Labs: Laboratory Results - last 24 hr 10/28/17 10/28/17 10/28/17 05:15 05:15 09:00 WBC 7.6 RBC 3.10 Hgb 8.2 Hct 26 MCV 83 MCH 27 MCHC 32 Plt Count 126 MPV 10 Sodium 145 Potassium 4.0 Chloride 116 Carbon Dioxide 23 Anion Gap 6 BUN 24 Creatinine 0.72 Glucose 405 H 460 H Calcium 7.1 L Studies: All cultures negative to date. Nutrition: Tube feeding with glucerna Impression: Severe infiltrative lung disease with no evidence of infection. Possibilities include 1) aspiration, 2)interstitial pneumonia associated with sjogren's syndrome, and 3)pulmonary O2 toxicity. Overall condition is deteriorating, and prognosis is poor (regardless of etiology). Plan: Continue supportive care (including pressors if needed). Since no evidence of infection, will d/c antibiotics. Critical Care Time: 45 minutes (not including time spent with the family).
[2017-10-28] MEDS ORDERED: Norepinephrine VIAL* 4 MG in NS 0.9% 250 ML* 250 ML IVPB SCH (16:00)
[2017-10-28] MEDS: Norepinephrine VIAL* 4 MG in NS 0.9% 250 ML* 246 ML IVPB SCH (16:19)
[2017-10-28] MEDS ORDERED: Norepinephrine 16MCG/ML IVPRE* 4,000 MCG/250 ML BAG IV SCH (17:00)
[2017-10-29] MEDS: Chlorhexidine MOUTHWASH 0.12%* 15 ML UDC TOPICAL SCH ×6 (01:11→20:53)
[2017-10-29] MEDS: Norepinephrine VIAL* 4 MG in NS 0.9% 250 ML* 246 ML IVPB SCH (02:10)
[2017-10-29 05:23] LABS: Hematocrit 22 % (35-47); Hemoglobin 6.8 g/dl (12.0-16.0); Mean Corpuscular HGB Conc 31 g/dl (31-36); Mean Corpuscular Hemoglobin 26 pg (27-31); Mean Corpuscular Volume 85 fL (80-97); Mean Platelet Volume 9 um3 (7.4-10.4); Platelet Count 215 10^3/ul (150-450); Red Blood Count 2.63 10^6/ul (4.0-5.4); Red Cell Distribution Width 20 % (10.5-15); White Blood Count 12.6 10^3/ul (3.5-10.8)
[2017-10-29 05:33] LABS: EGFR Non-African American 42.1 (>60)
[2017-10-29] MEDS: Levothyroxine INJ* 100 MCG/5 ML VIAL IV SCH (06:09)
[2017-10-29] MEDS: Propofol* 100 ML IV SCH ×2 (06:42→15:34)
--- NOTE | 2017-10-29 08:35 | RAD ---
INDICATION: Hypoglycemia COMPARISON: Most recent comparison chest x-ray is dated October 28, 2017 TECHNIQUE: Single AP portable view of the chest was obtained. FINDINGS: Image quality is compromised due to the relative inferiority of a portable chest x-ray. The endotracheal tube is appropriately positioned below the clavicular heads and above the henrietta. The gastric tube descends below the diaphragm and out of the [id number] of image. The right subclavian vein central line is appropriately positioned. The heart and mediastinum exhibit normal size and contour. There is been interval development of a small right apical pneumothorax. Relative to the previous chest x-ray the lungs exhibit improved aeration. There is persistent left greater than right costophrenic angle blunting with slight obscuration of the left hemidiaphragm. Visualized bones are normal for the patient's age. IMPRESSION: 1. Relative to the most recent chest x-ray there has been interval (re)development of a small right apical pneumothorax that is slightly larger when compared to the October 26, 2017 chest x-ray. 2. Otherwise the lungs exhibit improved aeration from previous recent chest x-rays. Findings were reported to Dr. Spencer over the telephone at 0831 hours on 10/29/17
[2017-10-29] MEDS: Famotidine IV* 10 MG/ML 2 ML (20 mg) IV SLOW PU SCH (09:05)
[2017-10-29] MEDS: Insulin GLARGINE(*) 1 UNITS UNIT SUBCUT SCH (12:01)
[2017-10-29] MEDS: Insulin LISPRO* 1 UNITS UNIT SUBCUT SCH ×2 (16:54→21:02)
[2017-10-29] MEDS ORDERED: Acetaminophen TAB* 325 MG PO PRN (17:30)
[2017-10-29] MEDS ORDERED: Acetaminophen ADULT LIQ* 650 MG/20.3 ML UDC ONE (17:38)
[2017-10-29] MEDS ORDERED: Cefepime(*) 1 GM in NS 0.9% 50 ML* 50 ML IVPB SCH (18:00)
[2017-10-29] MEDS ORDERED: Furosemide IV* 10 MG/ML 2 ML VIAL (20 MG) IV ONE (18:05)
--- NOTE | 2017-10-29 18:05 | PN ---
Critical Care Services: Continues on ventilator, but CXR shows some clearing (on APRV). However, is febrile. Vital Signs: Temp Pulse Resp BP SpO2 FiO2 101.5 F 108 14 106/57 96 30 Physical Exam: Gen:Unresponsive (on propofol) Lungs: Fine end-inspiratory crackles on both sides. Extremities:1-2+ edema both hands (new) Fluid Balance (Past 24 Hours): 10/29/17 06:59 Intake Total 4026 Output Total 375 Balance +3651 Weight 149 lb Intake: IV Fluids 1670 D5W LR LR 1670 ns IVPB 429 LR 429 ns Medicated IV 579 CC - Insulin 44 CC - Norepinephrine/ 324 Levophed CC - Propofol/Diprivan 211 kcl Oral Tube Feeding 1348 Packed Cells Output: Urine Castano 375 Other: Date of Last Bowel 10/27/17 Movement Labs: 10/29/17 10/29/17 10/29/17 03:03 03:55 05:10 Sodium 144 Potassium 4.1 Chloride 116 H Carbon Dioxide 25 BUN 29 Creatinine 1.27 Glucose 151 H POC Glucose (mg/dL) 155 H 157 H Calcium 7.0 L 10/29/17 10/29/17 10/29/17 05:10 05:10 06:09 WBC 12.6 H RBC 2.63 L Hgb 6.8 Hct 22 L MCV 85 MCH 26 L MCHC 31 RDW 20 H Plt Count 215 MPV 9 POC Glucose (mg/dL) 161 H 171 H Studies: CXR - Partial clearing of infiltrates (both sides) - residual right apical pneumothorax Nutrition: Tube feedings - Glucerna at 50 cc/hr Impression: 1. Respiratory status improving, but new fever is disturbing. 2. Significant fluid accumulation past few days. Plan: 1. Culture blood, urine, and sputum, and start cefepime empirically. 2. Taper APRV and evaluate for wean tomorrow. 3. Cut back on IV input wherever possible, and try low-dose diuretic. present at bedside and aware of current situation. Critical Care Time: 45 minutes
--- NOTE | 2017-10-29 18:21 | PN ---
Progress Note - Progress Note Date of Service: 10/29/17 Note: ADD: There has been a large increase in creatinine over past 24 hrs, along with a decrease in urine output, both possibly related to the levophed infusion ( which has been discontinued). Abdominal pressure is 10 cm H2O while supine, which rules out abdominal compartment syndrome as cause of the renal impairment.
[2017-10-29] MEDS: Cefepime 1 GM in Dextrose(*) 1 GM/50 ML BAG IV SCH (18:25)
[2017-10-29] MEDS ORDERED: NS 0.9% 1000 ML* 1,000 ML IV ONE (20:43)
[2017-10-29] MEDS ORDERED: NS 0.9% 1000 ML* 1,000 ML IV SCH (20:45)
[2017-10-30] MEDS: Chlorhexidine MOUTHWASH 0.12%* 15 ML UDC TOPICAL SCH ×6 (00:41→21:59)
[2017-10-30] MEDS: Insulin LISPRO* 1 UNITS UNIT SUBCUT SCH ×6 (00:57→20:54)
[2017-10-30] MEDS ORDERED: NS 0.9% 500 ML* 500 ML IV ONE (01:21)
[2017-10-30] MEDS: Propofol* 100 ML IV SCH ×2 (02:48→14:14)
[2017-10-30] MEDS: Levothyroxine INJ* 100 MCG/5 ML VIAL IV SCH (05:22)
[2017-10-30 05:48] LABS: Hematocrit 23 % (35-47); Hemoglobin 7.1 g/dl (12.0-16.0); Mean Corpuscular HGB Conc 31 g/dl (31-36); Mean Corpuscular Hemoglobin 26 pg (27-31); Mean Corpuscular Volume 86 fL (80-97); Mean Platelet Volume 9 um3 (7.4-10.4); Platelet Count 149 10^3/ul (150-450); Red Blood Count 2.68 10^6/ul (4.0-5.4); Red Cell Distribution Width 20 % (10.5-15); White Blood Count 6.6 10^3/ul (3.5-10.8)
[2017-10-30 05:57] LABS: EGFR Non-African American 26.6 (>60)
[2017-10-30] MEDS: Cefepime 1 GM in Dextrose(*) 1 GM/50 ML BAG IV SCH (06:06)
[2017-10-30] MEDS: Insulin GLARGINE(*) 1 UNITS UNIT SUBCUT SCH (10:22)
--- NOTE | 2017-10-30 10:45 | RAD ---
HISTORY: Follow-up pneumothorax, respiratory failure COMPARISONS: October 29, 2017 VIEWS: 1: frontal portable view of the chest at 10:13 AM. The patient is obliqued to the right. FINDINGS: LINES AND TUBES: An endotracheal tube is noted with the tip overlying the trachea between the clavicles and the henrietta. A gastric tube is noted, with the tip in the left upper quadrant in a prepyloric position.. A subclavian venous catheter is noted with the tip overlying the right atrium. CARDIOMEDIASTINAL SILHOUETTE: The cardiomediastinal silhouette is normal for portable technique. PLEURA: There is a stable small right apical pneumothorax. LUNG PARENCHYMA: There is patchy multifocal alveolar opacification throughout both lungs, improved from the previous examination. ABDOMEN: The upper abdomen is clear. There is no subphrenic gas. BONES AND SOFT TISSUES: No bone or soft tissue abnormalities are noted. IMPRESSION: 1. LINES AND TUBES ABOVE. 2. STABLE RIGHT APICAL PNEUMOTHORAX. 3. PERSISTENT, BUT IMPROVED, AIRSPACE DISEASE OF THE LUNGS BILATERALLY
[2017-10-30] MEDS: Famotidine IV* 10 MG/ML 2 ML (20 mg) IV SLOW PU SCH (11:10)
[2017-10-30] MEDS ORDERED: Insulin GLARGINE(*) 1 UNITS UNIT SUBCUT ONE (12:00)
--- NOTE | 2017-10-30 12:17 | PN ---
Progress Note - Progress Note Date of Service: 10/30/17 Note: CRITICAL CARE MEDICINE Date: 10/30/17 Time: 925 SUBJECTIVE: Patient seen and examined. PHYSICAL EXAM: appears much older then age Vital Signs: Reviewed. Neurologic: low dose propofol but rass -3 and off prop for nursing has remained -3. HEENT: pupils equal. Sclera anicteric. Trachea midline. Cardiovascular: distant, S1 S2 Respiratory: marked dec bs bl with poor movement, yet tachypnea on aprv noted with escalating etco2 Abdomen: Soft, nt. anasarca Extremities: Warm. 3+ edema; chronic wounds LABS: Reviewed. IMAGING: Reviewed. MEDICATIONS: Reviewed. ASSESSMENT: 66 F MSOF Acute hypoxic resp failure ALI - ?pna vs atelectasis vs transudative lung water vs interstial process Metabolic encephalopathy Right small pneumothorax Uncontrolled DM Anemia, thrombocytopenia sec to critical illness ZENOBIA now with component of ATN Moderate malnutrition Integumentary failure Functionally wheelchair bound PLAN: headed towards deficits of chronic critical illness as seemingly non- reversibility of her process currently. Lung cxr has improved with increased demands from pressure but still with poor compliance becoming further dependent on positive pressure. She is able to perfuse now but low flow state and ensuing atn component still lingering and inability to thrive given her MSOF Will discuss plans with family but her ability to thrive seems unlikely and road ahead to much to bare. Can add steroids today. Vent adjusted. See if any renal recovery potential but if continues to fail this next 24 hours then favoring comfort care would likely be prudent. Supportive and preventative care as ordered. SUP: H2 VTE prophylaxis: heparin Castano catheter given critical illness, monitoring needs for accurate assessment of ZENOBIA and KDIGO criteria for critically ill patients and to avoid potential harms of urinary retention, skin breakdown/ulcers. Disposition: ICU Code Status: DNR Critical Care Time: 35min FMilli Mcclelland DO
[2017-10-30] MEDS: Heparin VIAL(*) 5000 UNITS/ML VIAL (FIVE THOUSAND) SUBCUT SCH ×2 (12:36→20:54)
[2017-10-30] MEDS: methylPREDNISolone SOD 40 MG* 1 ML VIAL IV SCH ×3 (12:36→23:37)
--- NOTE | 2017-10-30 14:06 | PN ---
Progress Note - Progress Note Date of Service: 10/30/17 Note: CRITICAL CARE MEDICINE Date: 10/30/17 Time: 1400 Pts and son updated. Explained pts process and ailments currently and we discussed high morbidity and mortality. Giving time to see if renal function and lungs can improve at all. Explained worsening lung compliance. Stable ptx that may not be prudent to tx with heimlick at this time given her overall px. Trial steroids. See if any potential improvements come tomorrow towards anything meaningful vs dependence. Disposition: ICU Code Status: DNR Critical Care Time: 20min Kody Mcclelland DO
[2017-10-31] MEDS: Insulin LISPRO* 1 UNITS UNIT SUBCUT SCH ×3 (01:15→11:05)
[2017-10-31] MEDS: Chlorhexidine MOUTHWASH 0.12%* 15 ML UDC TOPICAL SCH ×3 (01:53→09:29)
[2017-10-31 05:46] LABS: Hematocrit 26 % (35-47); Hemoglobin 7.9 g/dl (12.0-16.0); Mean Corpuscular HGB Conc 31 g/dl (31-36); Mean Corpuscular Hemoglobin 26 pg (27-31); Mean Corpuscular Volume 85 fL (80-97); Mean Platelet Volume 10 um3 (7.4-10.4); Platelet Count 212 10^3/ul (150-450); Red Cell Distribution Width 20 % (10.5-15); White Blood Count 6.7 10^3/ul (3.5-10.8)
[2017-10-31] MEDS: methylPREDNISolone SOD 40 MG* 1 ML VIAL IV SCH (05:52)
[2017-10-31] MEDS: Heparin VIAL(*) 5000 UNITS/ML VIAL (FIVE THOUSAND) SUBCUT SCH (05:52)
[2017-10-31] MEDS: Levothyroxine INJ* 100 MCG/5 ML VIAL IV SCH (05:52)
[2017-10-31 06:07] LABS: EGFR Non-African American 21.2 (>60)
[2017-10-31] MEDS ORDERED: Famotidine SUSP* 40 MG/5 ML ORAL.SYRIN G TUBE ONE (09:00)
[2017-10-31] MEDS ORDERED: Insulin GLARGINE(*) 1 UNITS UNIT SUBCUT SCH (10:00)
[2017-10-31] MEDS ORDERED: Morphine PCA ADULT* 5 MG/ML 30 ML PCA SCH ×2 (11:00→13:10)
--- NOTE | 2017-10-31 11:09 | PN ---
Progress Note - Progress Note Date of Service: 10/31/17 Note: CRITICAL CARE MEDICINE Date: 10/31/17 Time: 945 SUBJECTIVE: Patient seen and examined. PHYSICAL EXAM: Vital Signs: Reviewed. Neurologic: off propofol but rass -3. HEENT: pupils equal. Sclera anicteric. Trachea midline. Cardiovascular: distant, S1 S2 Respiratory: marked dec bs still. tachypnea on aprv with Phigh 30. etco2 50. Abdomen: Soft, nt. anasarca Extremities: Warm. 3+ edema; chronic wounds LABS: Reviewed. IMAGING: Reviewed. MEDICATIONS: Reviewed. ASSESSMENT: 66 F MSOF Acute hypoxic resp failure ALI - ?pna vs atelectasis vs transudative lung water vs interstial process Metabolic encephalopathy Right small pneumothorax Uncontrolled DM Anemia, thrombocytopenia sec to critical illness ZENOBIA now with component of ATN Moderate malnutrition Integumentary failure Functionally wheelchair bound PLAN: still failing without ability to thrive. d/w family at bedside. options of continued care but likely to no good outcome vs comfort care. They opt for comfort care. start morphine gtt. terminal extubation when comfortable. Supportive and preventative care as ordered. Castano catheter given critical illness, monitoring needs for accurate assessment of ZENOBIA and KDIGO criteria for critically ill patients and to avoid potential harms of urinary retention, skin breakdown/ulcers. Disposition: ICU; comfort Code Status: DNR Critical Care Time: 35min Kody Mcclelland DO
[2017-10-31] MEDS ORDERED: NS 0.9% 1000 ML* 1,000 ML IV SCH (11:15)
--- NOTE | 2017-10-31 14:35 | DS ---
CRITICAL CARE MEDICINE DISCHARGE SUMMARY ADMISSION DATE: 10/22/2017 ICU ADMISSION DATE: 10/22/2017 ICU DISCHARGE DATE: 10/31/2017 PRIMARY CARE PROVIDER: Dr. Thomas. DIAGNOSIS: 1. Multisystem organ failure. 2. Acute hypoxic respiratory failure. 3. Aspiration pneumonitis. 4. Metabolic encephalopathy/ 5. Diabetic ketoacidosis. 6. Right pneumothorax. 7. Uncontrolled DM. 8. Acute renal failure with acute tubular necrosis. 9. Moderate malnutrition. 10. Integumentary failure. HOSPITAL COURSE: 66 year old female admitted with diabetic keotacidosis and associated encephalopathy. Treated agreesively but difficulty with control and probable aspiration pneumonitis with worsening airspace disease. Treated for culture negative pneumonia but required intubation and mechanical ventilation. Lung function improved slightly but continued deterioration from multisystem organ failure and given her overall condition and quality of life, family opted for comfort measures, instilled 10/31 with patient passing peacefully with family present. DISPOSITION: . Kody Mcclelland DO
[2017-10-31 15:06] VITALS: BP 40/18
== END 2017-10-31 14:11 | disposition expired | DRG 981 ==
LOC: ED 10:04 → ICU 12:43
PROVIDERS: ADMIT Internal Medicine Critical Care Medicine; ATTEND Internal Medicine Critical Care Medicine
PROC: 05H533Z Insertion of Infusion Device into Right Subclavian Vein, Percutaneous Approach (ICD-10-PCS; 2017-10-24)
PROC: 0WCQ8ZZ Extirpation of Matter from Respiratory Tract, Via Natural or Artificial Opening Endoscopic (ICD-10-PCS; 2017-10-26)
PROC: 5A1945Z Respiratory Ventilation, 24-96 Consecutive Hours (ICD-10-PCS; 2017-10-26)
PROC: 30233N1 Transfusion of Nonautologous Red Blood Cells into Peripheral Vein, Percutaneous Approach (ICD-10-PCS; 2017-10-26)
PROC: 0BH17EZ Insertion of Endotracheal Airway into Trachea, Via Natural or Artificial Opening (ICD-10-PCS; principal; 2017-10-27)
DX: E10.10 Type 1 diabetes mellitus with ketoacidosis without coma (principal); J96.01 Acute respiratory failure with hypoxia; N17.0 Acute kidney failure with tubular necrosis; J69.0 Pneumonitis due to inhalation of food and vomit; G93.41 Metabolic encephalopathy; J94.2 Hemothorax; E44.0 Moderate protein-calorie malnutrition; J93.9 Pneumothorax, unspecified; D69.6 Thrombocytopenia, unspecified; D56.3 Thalassemia minor; Z85.89 Personal history of malignant neoplasm of other organs and systems; Z87.440 Personal history of urinary (tract) infections; Z88.5 Allergy status to narcotic agent; Z88.1 Allergy status to other antibiotic agents; Z88.8 Allergy status to other drugs, medicaments and biological substances; Z88.0 Allergy status to penicillin; Z91.041 Radiographic dye allergy status; Z91.048 Other nonmedicinal substance allergy status; Z88.7 Allergy status to serum and vaccine; Z91.018 Allergy to other foods; J45.909 Unspecified asthma, uncomplicated; J30.2 Other seasonal allergic rhinitis; K58.9 Irritable bowel syndrome, unspecified; M19.90 Unspecified osteoarthritis, unspecified site; Z92.21 Personal history of antineoplastic chemotherapy; Z92.3 Personal history of irradiation; Z82.49 Family history of ischemic heart disease and other diseases of the circulatory system; Z83.3 Family history of diabetes mellitus; D64.9 Anemia, unspecified; Z66 Do not resuscitate; Z68.28 Body mass index [BMI] 28.0-28.9, adult; Z99.3 Dependence on wheelchair; Z51.5 Encounter for palliative care
CPT/HCPCS: 31624; 36415; 36600; 71045; 80048; 80053; 81003; 81015; 82272; 82550; 82803; 82947; 83036; 83605; 83735; 83880; 84100; 84145; 84484; 85014; 85018; 85025; 85027; 85610; 85652; 85730; 86140; 86850; 86900; 86901; 86922; 87040; 87086; 87502; 87641; 94002; 94003; 94760; A9270-GY; J0330; J0692; J1644; J1815; J1885; J1940; J2060; J2270; J2704; J2920; J3010; J3480; P9040